=== PATIENT | female | born 1995 | race Caucasian/White ===

== ENCOUNTER 2018-02-22 13:36 | Emergency (ER) | payer MEDICAID ==
[~2018-02-22] VITALS: Ht 162.6 cm; Wt 70.0 kg
[2018-02-22] MEDS ORDERED: GADODIAMIDE PF 287 MG/ML 5 ML VIAL (for RAD MRI) IVCONTRAST ONE (13:37)
[2018-02-22 15:19] VITALS: BP 105/69; PULSE 78; RESP 17; TEMP 97.8; O2SAT 100
--- NOTE | 2018-02-22 16:03 | RADRPT ---
EXAM DATE: 02/22/2018 3:49 PM EDT AGE/SEX: 22 years / Female INDICATIONS: Right anterior, inferior knee pain. CLINICAL DATA: This is the patient's initial encounter. Patient reports that signs and symptoms have been present for 2 weeks and indicates a pain score of 7/10. MEDICAL/SURGICAL HISTORY: None. None. COMPARISON: No prior [place] exams available for comparison. FINDINGS: There is a poorly circumscribed mixed lucent and sclerotic lesion involving the proximal right tibia, mainly the metaphysis however also appearing to extend into the epiphysis though not clearly to the joint level. There is cortical destruction involving the lateral metaphyseal region. The femur, huertas la and fibula appear intact and unremarkable. There is no definite soft tissue mass. Possible minimal effusion. CONCLUSION: Fairly aggressive appearing lesion in the proximal right tibia. Differential considerations would inc lude giant cell tumor, eosinophilic granuloma, infection, sarcoma. Electronically signed by: Rodrick Bell MD 02/22/2018 4:02 PM EDT
[2018-02-22] MEDS ORDERED: SODIUM CHLORIDE 0.9% FLUSH 10 ML FLUSH IVF PRN (19:15)
[2018-02-22 19:23] VITALS: BP 110/57; PULSE 90; RESP 16; O2SAT 99
[2018-02-22 19:41] LABS: AUTOMATED NEUTROPHIL # 4.6 TH/MM3 (1.8-7.7); BASOPHIL # 0.1 TH/MM3 (0-0.2); EOSINOPHIL # 0.2 TH/MM3 (0-0.4); EOSINOPHIL % 2.6 % (0.0-4.0); HEMATOCRIT 35.1 % (35.0-46.0); HEMOGLOBIN 11.9 GM/DL (11.6-15.3); LYMPH % 23.1 % (9.0-44.0); LYMPHOCYTE # 1.5 TH/MM3 (1.0-4.8); MEAN CELL VOLUME 86.8 FL (80.0-100.0); MEAN CORPUSCULAR HEMOGLOBIN 29.4 PG (27.0-34.0); MEAN CORPUSCULAR HGB CONC 33.9 % (32.0-36.0); MEAN PLATELET VOLUME 8.5 FL (7.0-11.0); MONO % 5.1 % (0.0-8.0); MONOCYTE # 0.3 TH/MM3 (0-0.9); NEUT % 68.2 % (16.0-70.0); PLATELET COUNT 385 TH/MM3 (150-450); RED BLOOD COUNT 4.04 MIL/MM3 (4.00-5.30); RED CELL DISTRIBUTION WIDTH 13.6 % (11.6-17.2); WHITE BLOOD COUNT 6.7 TH/MM3 (4.0-11.0)
[2018-02-22 19:56] LABS: ALT (GPT) 19 U/L (9-42)
[2018-02-22 19:59] LABS: ALKALINE PHOSPHATASE 77 U/L (45-117); TOTAL BILIRUBIN ADULT 0.4 MG/DL (0.2-1.0); TOTAL PROTEIN 9.6 GM/DL (6.4-8.2)
[2018-02-22 20:06] LABS: ALBUMIN 4.3 GM/DL (3.4-5.0); AST (GOT) 20 U/L (16-38); BICARBONATE 24.2 MEQ/L (21.0-32.0); BLOOD UREA NITROGEN 9 MG/DL (7-18); CALCIUM 9.5 MG/DL (8.5-10.1); CHLORIDE 102 MEQ/L (98-107); GLOMERULAR FILTRATION RATE 91 ML/MIN (>89); GLUCOSE,RANDOM 100 MG/DL (74-106); SODIUM (NA) 139 MEQ/L (136-145)
--- NOTE | 2018-02-22 20:24 | PD ---
HPI Chief Complaint: Musculoskeletal Complaint Time Seen by Provider: 18:27 Travel History International Travel<30 days: No Contact w/Intl Traveler<30days: No Traveled to known affect area: No History of Present Illness HPI 22-year-old female complains of right knee pain. She has had pain in the right knee for several years. It has been raining for the past week or so when she reports the pain has been much worse since the rain started. She denies trauma. Pain is worse with palpation and ambulation. No shortness of breath. No chest pain. PFSH Past Medical History Medical History: Denies Significant Hx Tetanus Vaccination: Unknown Influenza Vaccination: No ?: Not Past Surgical History Surgical History: No Previous Surgery Social History Alcohol Use: No Tobacco Use: No Substance Use: No Allergies-Medications (Allergen,Severity, Reaction): Coded Allergies: No Known Allergies (Unverified , 02/22/18) Reported Meds & Prescriptions Reported Meds & Active Scripts Active No Active Prescriptions or Reported Medications Review of Systems General / Constitutional: No: Fever Eyes: No: Diploplia HENT: No: Headaches Cardiovascular: No: Chest Pain or Discomfort, Palpitations Respiratory: No: Shortness of Breath Musculoskeletal: Positive: Limited ROM, Pain, No: Myalgias, Arthralgias, Weakness, Cramping, Edema Physical Exam Narrative GENERAL: 22-year-old female pleasant well-nourished well-developed mild distress secondary to pain Vital Signs Date Time Temp Pulse Resp B/P (MAP) Pulse Ox O2 Delivery O2 Flow Rate FiO2 02/22/18 19:23 90 16 110/57 (74) 99 Room Air 02/22/18 15:19 97.8 78 17 105/69 (81) 100 SKIN: Warm and dry. HEAD: Normocephalic. EYES: No scleral icterus. No injection or drainage. NECK: Supple, trachea midline. No JVD or lymphadenopathy. CARDIOVASCULAR: Regular rate and rhythm without murmurs, gallops, or rubs. RESPIRATORY: Breath sounds equal bilaterally. No accessory muscle use. GASTROINTESTINAL: Abdomen soft, non-tender, nondistended. MUSCULOSKELETAL: Right knee is slightly flexed. Full extension is limited due to pain. There is generalized swelling about the region of the tibial tuberosity. There is no warmth or induration. 2+ dorsalis pedis bilaterally. BACK: Nontender without obvious deformity. No CVA tenderness. Data Data Last Documented VS Vital Signs Date Time Temp Pulse Resp B/P (MAP) Pulse Ox O2 Delivery O2 Flow Rate FiO2 02/22/18 19:23 90 16 110/57 (74) 99 Room Air 02/22/18 15:19 97.8 Vital signs normal Orders Orders Knee, Complete (4vws) (02/22/18 ) Complete Blood Count With Diff (02/22/18 19:02) Comprehensive Metabolic Panel (02/22/18 19:02) Iv Access Insert/Monitor (02/22/18 19:02) Sodium Chloride 0.9% Flush (Ns Flush) (02/22/18 19:15) Mri Lower Leg W/Wo Contrast (02/22/18 19:50) Gadodiamide Pf Inj (Omniscan Pf Inj) (02/22/18 13:37) Labs Laboratory Tests Test 02/22/18 19:27 White Blood Count 6.7 TH/MM3 Red Blood Count 4.04 MIL/MM3 Hemoglobin 11.9 GM/DL Hematocrit 35.1 % Mean Corpuscular Volume 86.8 FL Mean Corpuscular Hemoglobin 29.4 PG Mean Corpuscular Hemoglobin Concent 33.9 % Red Cell Distribution Width 13.6 % Platelet Count 385 TH/MM3 Mean Platelet Volume 8.5 FL Neutrophils (%) (Auto) 68.2 % Lymphocytes (%) (Auto) 23.1 % Monocytes (%) (Auto) 5.1 % Eosinophils (%) (Auto) 2.6 % Basophils (%) (Auto) 1.0 % Neutrophils # (Auto) 4.6 TH/MM3 Lymphocytes # (Auto) 1.5 TH/MM3 Monocytes # (Auto) 0.3 TH/MM3 Eosinophils # (Auto) 0.2 TH/MM3 Basophils # (Auto) 0.1 TH/MM3 CBC Comment DIFF FINAL Differential Comment Blood Urea Nitrogen 9 MG/DL Creatinine 0.80 MG/DL Random Glucose 100 MG/DL Total Protein 9.6 GM/DL Albumin 4.3 GM/DL Calcium Level 9.5 MG/DL Alkaline Phosphatase 77 U/L Aspartate Amino Transf (AST/SGOT) 20 U/L Alanine Aminotransferase (ALT/SGPT) 19 U/L Total Bilirubin 0.4 MG/DL Sodium Level 139 MEQ/L Potassium Level 4.0 MEQ/L Chloride Level 102 MEQ/L Carbon Dioxide Level 24.2 MEQ/L Anion Gap 13 MEQ/L Estimat Glomerular Filtration Rate 91 ML/MIN MDM Medical Decision Making Medical Screen Exam Complete: Yes Emergency Medical Condition: Yes Medical Record Reviewed: Yes Differential Diagnosis Fracture, arthritis, tumor Narrative Course CBC & BMP Diagram 02/22/18 19:27 Total Protein 9.6 H, Albumin 4.3, Calcium Level 9.5, Alkaline Phosphatase 77, Aspartate Amino Transf (AST/SGOT) 20, Alanine Aminotransferase (ALT/SGPT) 19, Total Bilirubin 0.4 Last Impressions Knee X-Ray 02/22/18 0000 Signed Impressions: CONCLUSION: Fairly aggressive appearing lesion in the proximal right tibia. Differential co nsiderations would include giant cell tumor, eosinophilic granuloma, infection, sarcoma. Case discussed with orthopedic surgeon nuclear weapons specialist Dr. Jimenez who advises MRI of the tibia-fibula and knee with a referral to orthopedic oncology at [facility] or [place]. I spoke with the on-call orthopedic oncologist at [facility] in [place] at approximately 9:30 PM. 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 They are more than willing to see the patient. The appointment will be on Sunday after . The patient's contact info was checked and then provided to the on-call orthopedic oncologist. The plan was discussed with the patient with the guardian there. Both verbalized understanding and agreement to follow-up as scheduled on Sunday. We will provide the patient with crutches. Michael bandage also provided. Last Impressions Lower Extremity MRI 02/22/18 1950 Signed Impressions: CONCLUSION: 1. Enhancing, heterogeneous destructive mass with soft tissue component involv ing the proximal 7 cm of the right tibia most characteristic of neoplasm. Prima ry differential diagnosis is osteogenic sarcoma. Knee X-Ray 02/22/18 0000 Signed Impressions: CONCLUSION: Fairly aggressive appearing lesion in the proximal right tibia. Differential co nsiderations would include giant cell tumor, eosinophilic granuloma, infection, sarcoma. Diagnosis Primary Impression: Neoplasm of tibia Referrals: DR DUBOSE IN [place] ON SUNDAY Additional Instructions: ON March, PLEASE GO TO [facility] IN [place] TO SEE DR DUBOSE. 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 HER NAME IS CHACORTA. PLEASE CALL ON SUNDAY TO CONFIRM WHAT TIME AND THE DIRECTIONS TO THE OFFICE. PLAN TO STAY FOR A FEW DAYS. PLEASE USE THE CRUTCHES PROVIDED FOR YOU AND MINIMIZE WALKING ON THE RIGHT LEG. Med/Other Pt SpecificInfo: No Change to Meds Scripts No Active Prescriptions or Reported Meds Disposition: 01 DISCHARGE HOME Condition: Carlos White MD February 22, 2018 20:24
--- NOTE | 2018-02-22 21:14 | RADRPT ---
EXAM DATE: 02/22/2018 9:00 PM EDT AGE/SEX: 22 years / Female INDICATIONS: Mass. CLINICAL DATA: This is the patient's initial encounter. Patient reports that signs and symptoms have been present for 1 day and indicates a pain score of 5/10. MEDICAL/SURGICAL HISTORY: None. None. COMPARISON: No prior [place] exams available for comparison. TECHNIQUE: Multiplanar, multisequence MRI examination was performed without and with ml Omniscan (ga dodiamide) contrast as single exam dose. FINDINGS: There is a very heterogeneous, enhancing destructive mass involving the proximal tibia extending over a length of around 7 cm. There is some inferior extension of marrow edema as well. There is some sof t tissue extension through the posterior lateral aspect of the proximal tibia with a soft tissue comp onent measuring at least 3 x 1.8 cm. There is cortical lytic destruction adjacent to this soft tissue mass. There is a small knee joint effusion. No mass is identified in the distal femur or proximal ti lemuel. CONCLUSION: 1. Enhancing, heterogeneous destructive mass with soft tissue component involving the proximal 7 cm of the right tibia most characteristic of neoplasm. Primary differential diagnosis is osteogenic sarc seble. Electronically signed by: Ronnie Rosa MD 02/22/2018 9:13 PM EDT
== END 2018-02-22 22:26 | disposition home or self-care (01) ==
LOC: NEPD 13:36
DX: D49.2 Neoplasm of unspecified behavior of bone, soft tissue, and skin (principal)
CPT/HCPCS: 73564; 73720; 80053; 85025; 99285; A9579; E0113

== ENCOUNTER 2018-03-21 19:50 | Emergency (ER) | payer MEDICAID ==
[~2018-03-21] VITALS: Ht 162.6 cm; Wt 60.0 kg
[2018-03-21 20:21] VITALS: BP 112/65; PULSE 106; RESP 18; TEMP 99; O2SAT 100
[2018-03-21] MEDS ORDERED: SODIUM CHLOR 0.9% 1000 ML INJ 1,000 ML IV SCH (21:40)
[2018-03-21] MEDS ORDERED: MORPHINE SULFATE 4 MG/ML INJ IV PUSH ONE (21:45)
[2018-03-21] MEDS ORDERED: ONDANSETRON HCL 4 MG/2 ML VIAL IM ONE (21:45)
--- NOTE | 2018-03-21 21:52 | PD ---
HPI Chief Complaint: Abdominal Pain Time Seen by Provider: 21:27 Travel History International Travel<30 days: No Contact w/Intl Traveler<30days: No Traveled to known affect area: No History of Present Illness HPI 22-year-old female that presents to the ED for evaluation of abdominal pain and no bowel movements. Per patient she has a history of cancer and is currently being treated by [facility]. She had first chemotherapy last week and has been doing okay except having some side effects. Per patient since Sunday she has not been able to have a bowel movement. She states that she has pain whenever she tries to have a bowel movement. She has not been able to pass gas per her. She has been feeling nauseous and had some vomit. She takes Zofran and pain medication as well as anxiolytics lorazepam to help with the symptoms as well. She has not had any chemo since. She has tried some [id number]-inx-[id number] remedies with minimal relief. Denies any blood. Denies any blood thinner use. She does have a Port. 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 States that currently the pain is 7 out of 10 especially the lower abdomen. No other medical issues reported at this time. PFSH Past Medical History Cancer: Yes (OSTEOSARCOMA) ?: Not LMP: 03/02/18 Past Surgical History Other Surgery: Yes (BIOPSY OF THE RIGHT LEG) Social History Alcohol Use: No Tobacco Use: No Substance Use: No Allergies-Medications (Allergen,Severity, Reaction): Coded Allergies: No Known Allergies (Unverified , 03/21/18) Reported Meds & Prescriptions Reported Meds & Active Scripts Active No Active Prescriptions or Reported Medications Review of Systems Except as stated in HPI: all other systems reviewed are Neg Physical Exam Narrative GENERAL: SKIN: Warm and dry. HEAD: Atraumatic. Normocephalic. EYES: Pupils equal and round. No scleral icterus. No injection or drainage. ENT: No nasal bleeding or discharge. Mucous membranes pink and moist. Tongue is midline. No uvula deviation. NECK: Trachea midline. No JVD. CARDIOVASCULAR: Regular rate and rhythm. No murmurs, S3, S4. RESPIRATORY: No accessory muscle use. Clear to auscultation. Breath sounds equal bilaterally. GASTROINTESTINAL: Abdomen soft, tender to palpation in the lower abdomen, nondistended. Hepatic and splenic margins not palpable. MUSCULOSKELETAL: Extremities without clubbing, cyanosis, or edema. No obvious deformities. 2+ pulses bilaterally. NEUROLOGICAL: Awake and alert. No obvious cranial nerve deficits. Motor grossly within normal limits. Five out of 5 muscle strength in the arms and legs. Normal speech. PSYCHIATRIC: Appropriate mood and affect; insight and judgment normal. Data Data Last Documented VS Vital Signs Date Time Temp Pulse Resp B/P (MAP) Pulse Ox O2 Delivery O2 Flow Rate FiO2 03/21/18 20:21 99.0 106 18 112/65 (81) 100 Orders Orders Complete Blood Count With Diff (03/21/18 21:40) Comprehensive Metabolic Panel (03/21/18 21:40) Lactic Acid (03/21/18 21:40) Urinalysis - C+S If Indicated (03/21/18 21:40) Ct Abd/Pel W Iv Contrast(Rout) (03/21/18 21:40) Iv Access Insert/Monitor (03/21/18 21:40) Ecg Monitoring (03/21/18 21:40) Morphine Inj (Morphine Inj) (03/21/18 21:45) Sodium Chlor 0.9% 1000 Ml Inj (Ns 1000 M (03/21/18 21:40) Ondansetron Inj (Zofran Inj) (03/21/18 21:45) Ondansetron Odt (Zofran Odt) (03/21/18 22:30) MDM Medical Decision Making Medical Screen Exam Complete: Yes Emergency Medical Condition: Yes Medical Record Reviewed: Yes Differential Diagnosis Acute abdomen versus constipation versus obstruction versus medication side effect Narrative Course 22-year-old female that presents to the ED for evaluation of abdominal pain. Patient was properly examined and was found to have signs and symptoms concerning for obstruction. Labs and imaging order. Patient was given IV fluids as well as pain medication and antiemetics. Case signed out to my attending pending disposition and plan. Scripts No Active Prescriptions or Reported Meds Ra Rao Mar 21, 2018 21:52
[2018-03-21] MEDS ORDERED: ONDANSETRON ODT 4 MG TAB PO ONE (22:30)
--- NOTE | 2018-03-21 23:00 | PD ---
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 She is seen at oncology [facility] at [facility] now she has had 3 days with no bowel movement and she is worried that she is good she did has obstipation as well as constipation pending CT Data Data Last Documented VS Vital Signs Date Time Temp Pulse Resp B/P (MAP) Pulse Ox O2 Delivery O2 Flow Rate FiO2 03/22/18 00:46 89 18 110/62 (78) 98 Room Air 03/21/18 20:21 99.0 Orders Orders Complete Blood Count With Diff (03/21/18 21:40) Comprehensive Metabolic Panel (03/21/18 21:40) Lactic Acid (03/21/18 21:40) Urinalysis - C+S If Indicated (03/21/18 21:40) Iv Access Insert/Monitor (03/21/18 21:40) Ecg Monitoring (03/21/18 21:40) Morphine Inj (Morphine Inj) (03/21/18 21:45) Sodium Chlor 0.9% 1000 Ml Inj (Ns 1000 M (03/21/18 21:40) Ondansetron Inj (Zofran Inj) (03/21/18 21:45) Ondansetron Odt (Zofran Odt) (03/21/18 22:30) Beta Hcg (Quant/Titer) (03/21/18 23:31) Ct Abd/Pel W Iv Contrast(Rout) (03/22/18 21:40) Morphine Inj (Morphine Inj) (03/22/18 00:45) Iodixanol 320 Inj (Rad Ct) (Visipaque 32 (03/22/18 01:53) Fleets Enema PRN (03/22/18 02:47) Labs Laboratory Tests Test 03/21/18 22:25 03/21/18 22:43 White Blood Count 1.4 TH/MM3 Red Blood Count 4.42 MIL/MM3 Hemoglobin 12.3 GM/DL Hematocrit 37.7 % Mean Corpuscular Volume 85.4 FL Mean Corpuscular Hemoglobin 27.8 PG Mean Corpuscular Hemoglobin Concent 32.6 % Red Cell Distribution Width 14.2 % Platelet Count 137 TH/MM3 Mean Platelet Volume 9.8 FL CBC Comment AUTO DIFF Differential Total Cells Counted 100 Neutrophils % (Manual) 4 % Band Neutrophils % 1 % Lymphocytes % 90 % Monocytes % 1 % Eosinophils % 4 % Neutrophils # (Manual) 0.1 TH/MM3 Differential Comment FINAL DIFF MANUAL Toxic Vacuolation PRESENT Platelet Estimate LOW Platelet Morphology Comment NORMAL Red Cell Morphology Comment NORMAL Blood Urea Nitrogen 32 MG/DL Creatinine 1.15 MG/DL Random Glucose 90 MG/DL Total Protein 7.7 GM/DL Albumin 3.7 GM/DL Calcium Level 8.5 MG/DL Alkaline Phosphatase 69 U/L Aspartate Amino Transf (AST/SGOT) 14 U/L Alanine Aminotransferase (ALT/SGPT) 22 U/L Total Bilirubin 0.6 MG/DL Sodium Level 136 MEQ/L Potassium Level 3.2 MEQ/L Chloride Level 101 MEQ/L Carbon Dioxide Level 24.9 MEQ/L Anion Gap 10 MEQ/L Estimat Glomerular Filtration Rate 60 ML/MIN Lactic Acid Level 1.0 mmol/L Human Chorionic Gonadotropin, Quant LESS THAN 1 MIU/ML Urine Color YELLOW Urine Turbidity CLEAR Urine pH 6.0 Urine Specific [place] 1.021 Urine Protein 100 mg/dL Urine Glucose (UA) 50 mg/dL Urine Ketones NEG mg/dL Urine Occult Blood NEG Urine Nitrite NEG Urine Bilirubin NEG Urine Urobilinogen 2.0 mg/dL Urine Leukocyte Esterase NEG Urine RBC 2 /hpf Urine WBC 1 /hpf Urine Squamous Epithelial Cells <1 /hpf Urine Mucus FEW /lpf Microscopic Urinalysis Comment CULT NOT INDICATED MDM Medical Record Reviewed: Yes Supervised Visit with MARK: Yes Narrative Course pt has constipation from chemo and opioids for her bone CA Diagnosis Primary Impression: Constipation Qualified Codes: K59.00 - Constipation, unspecified Patient Instructions: Constipation (ED), General Instructions Scripts Bisacodyl Enema (Fleet Bisacodyl Enema) 10 Mg/37 Ml Enem 37 ML RECTAL DAILY Y for CONSTIPATION, #6 BOTTLE 0 Refills Prov: Hugo Edward MD 03/22/18 Polyethylene Glycol 3350 Powder (Miralax Powder) 17 Gm Powd 17 GM PO DAILY for Constipation, #1 CAN 0 Refills Mix and dissolve one measuring cap-ful (17 grams) in water or juice. Prov: Hugo Edward MD 03/22/18 Disposition: 01 DISCHARGE HOME Hugo Edward MD Mar 21, 2018 23:00
[2018-03-21 23:07] LABS: HEMATOCRIT 37.7 % (35.0-46.0); HEMOGLOBIN 12.3 GM/DL (11.6-15.3); MEAN CELL VOLUME 85.4 FL (80.0-100.0); MEAN CORPUSCULAR HEMOGLOBIN 27.8 PG (27.0-34.0); MEAN CORPUSCULAR HGB CONC 32.6 % (32.0-36.0); MEAN PLATELET VOLUME 9.8 FL (7.0-11.0); PLATELET COUNT 137 TH/MM3 (150-450); RED BLOOD COUNT 4.42 MIL/MM3 (4.00-5.30); RED CELL DISTRIBUTION WIDTH 14.2 % (11.6-17.2); WHITE BLOOD COUNT 1.4 TH/MM3 (4.0-11.0)
[2018-03-21 23:16] LABS: BILIRUBIN, URINE NEG (NEG); BLOOD, URINE NEG (NEG); GLUCOSE,URINE 50 mg/dL (NEG); KETONE, URINE NEG (NEG); MUCUS URINE FEW /lpf (OCC); NITRITE,URINE NEG (NEG); SQUAMOUS EPITHELIAL CELL URINE <1 /hpf (0-5); URINE COLOR YELLOW (YELLW/STRAW); URINE LEUKOCYTE ESTERASE NEG (NEG)
[2018-03-21 23:27] LABS: ALBUMIN 3.7 GM/DL (3.4-5.0); AST (GOT) 14 U/L (16-38); BICARBONATE 24.9 MEQ/L (21.0-32.0); BLOOD UREA NITROGEN 32 MG/DL (7-18); CALCIUM 8.5 MG/DL (8.5-10.1); CHLORIDE 101 MEQ/L (98-107); CREATININE 1.15 MG/DL (0.50-1.00); GLOMERULAR FILTRATION RATE 60 ML/MIN (>89); GLUCOSE,RANDOM 90 MG/DL (74-106); SODIUM (NA) 136 MEQ/L (136-145)
[2018-03-21 23:31] LABS: ALKALINE PHOSPHATASE 69 U/L (45-117); ALT (GPT) 22 U/L (9-42); TOTAL BILIRUBIN ADULT 0.6 MG/DL (0.2-1.0); TOTAL PROTEIN 7.7 GM/DL (6.4-8.2)
[2018-03-22] MEDS ORDERED: MORPHINE SULFATE 4 MG/ML INJ IV PUSH ONE (00:45)
[2018-03-22 00:46] VITALS: BP 110/62; PULSE 89; RESP 18; O2SAT 98
[2018-03-22 01:21] LABS: BANDS 1 % (0-6); LYMPHOCYTES 90 % (9-44); MONOCYTES 1 % (0-8); POLYS (SEG NEUTROPHILS) 4 % (16-70)
[2018-03-22 01:23] LABS: NEUTROPHIL # MANUAL DIFF 0.1 TH/MM3 (1.8-7.7); TOXIC VACUOLATION PRESENT (NONE SEEN)
[2018-03-22] MEDS ORDERED: IODIXANOL 320 MG/ML 10 ML VIAL (for Rad CT) IVCONTRAST ONE (01:53)
--- NOTE | 2018-03-22 02:03 | RADRPT ---
EXAM DATE: 03/22/2018 1:52 AM EDT AGE/SEX: 22 years / Female INDICATIONS: Abdominal pain and constipation. CLINICAL DATA: This is the patient's initial encounter. Patient reports that signs and symptoms have been present for 4 - 6 days and indicates a pain score of 10/10. MEDICAL/SURGICAL HISTORY: . Osteosarcoma. Chemotherapy. . Port Placement. ORAL CONTRAST: No oral contrast ingested. RADIATION DOSE: 4.86 CTDI (mGy) COMPARISON: No prior exams available for comparison. TECHNIQUE: Multiple contiguous axial images were obtained through the abdomen and pelvis following b olus infusion of 85 ml Visipaque 320 (iodixanol) nonionic water-soluble contrast as a single exam d ose. No oral contrast ingested. Using automated exposure control and adjustment of the mA and/or kV according to patient size, radiation dose was kept as low as reasonably achievable to obtain optimal diagnostic quality images. DICOM format image data is available electronically for review and compar kevin. FINDINGS: Lower Lungs: The visualized lower lungs are clear. Liver: The liver has a homogeneous density without space-occupying lesion. There is no dilation of th e biliary tree. The gallbladder is unremarkable. Spleen: Homogeneous density without enlargement. Pancreas: Unremarkable without mass or calcification. Kidneys: Normal in size and shape. No evidence of a solid mass or hydronephrosis. There are 2 small simple cysts in the left kidney. Adrenal Glands: Unremarkable. Aorta: The aorta and proximal iliac vessels are grossly unremarkable without aneurysmal dilation. Bowel/Mesentery: No oral contrast was given limiting the sensitivity of the exam. Moderate amount of stool is present: No evidence of obstruction. There is no free air or fluid. Abdominal Wall: Intact. Retroperitoneum: No evidence of adenopathy in the retrocrural, para-aortic, or deep pelvic regions. Bladder: Contours are smooth. Reproductive Organs: No abnormal masses or calcifications seen. Inguinal: The inguinal region is unremarkable without evidence of adenopathy. Bony Structures: Unremarkable. CONCLUSION: 1. Nonobstructive bowel gas pattern with moderate amount of stool. 2. 2. Small simple cyst in the left kidney. Electronically signed by: Don Resendez MD 03/22/2018 2:02 AM EDT
[2018-03-22] MEDS ORDERED: MIRA3350 PO (02:49)
[2018-03-22] MEDS ORDERED: FLEE10EN RECTAL (02:49)
[2018-03-22] MEDS ORDERED: SOD PHOSPHATE/SOD BIPHOSPHATE (ADULT) ENEMA 133ML RECTAL ONE (03:00)
== END 2018-03-22 03:15 | disposition home or self-care (01) ==
LOC: NEPE 19:50
DX: K59.00 Constipation, unspecified (principal); N28.1 Cyst of kidney, acquired; C41.9 Malignant neoplasm of bone and articular cartilage, unspecified
CPT/HCPCS: 74177; 80053; 81001; 83605; 84702; 85007; 85027; 96361; 96374; 96376; 99284; J1642; J2270; J7030; Q9967

== ENCOUNTER 2018-03-22 22:44 | Inpatient (IN) ==
[2018-03-31] MEDS ORDERED: Aluminum/Magnesium/Simethacone Susp 30 ML UDC PO PRN (00:01)
[2018-03-31] MEDS ORDERED: Heparin Central Flush 100 UNIT/ML 5 ML Vial IV.FLUSH PRN ×2 (00:01)
[2018-03-31] MEDS ORDERED: Nystatin/Diphenhydramine/Lidocaine Mouthwash (Adult) 120 ML Botttle SWISH-SWAL PRN (00:01)
[2018-03-31] MEDS ORDERED: Acetaminophen 325 MG Tablet PO PRN ×2 (00:01)
[2018-03-31] MEDS ORDERED: Bisacodyl 10 MG Supp RECTAL PRN (00:01)
[2018-03-31] MEDS ORDERED: Morphine Inj 4 MG/ML Vial IV.PUSH PRN (00:01)
[2018-03-31] MEDS: Senna/Docusate Sodium 8.6/50 MG Tablet PO SCH ×2 (10:00→20:54)
--- NOTE | 2018-03-31 10:38 | P.CONID ---
History of Present Illness Service: ID Consult date: 03/31/18 Requesting Physician: Gume Aguilera Reason for Consult: Evaluation and MMent of Fever Primary Care Provider: No Primary Care Physician Chief Complaint: Pain in the butt History of Present Illness: is a 22 y/o CF with recent diagnosis of Osteosarcoma who was referred to the ER by her Oncologist, Dr. Arora, at [facility] for evaluation of fever. Pt was diagnosed w/ Osteosarcoma on ER visit 02/22/18, was referred to [facility] and started on Chemo 1wk ago. Most of the history provided by patient's older sister who is at bedside. States she was doing well after chemo until today when she started having fever of 102 at home in addition to nausea. Sister reports she was on bactrim oral and Neupogen inj on 03/17/2018. Denies SOB , cough, sick contacts. Seen in ER yesterday, 03/22/18 for possible constipation , CT Abd/Pelvis w/ nonobstructive bowel gas pattern and left kidney simple cyst. On arrival, BP 102/59, HR 135, O2 sat 100% on RA, Temp 100.1. WBC 0.3. Platelets 90. Chemistry unremarkable except for GFR 79, BUN 19. Lactic Acid 1.1. UA negative for UTI. CXR with no acute findings. S/p Vanc/Cefepime in ER. Workup initiated for neutropenic sepsis. ID consulted for the same. Overnight events reviewed No fevers No rash No diarrhea Port placed at [facility]. Site looks ok. PMHx Review of Systems unobtainable due to endotracheal tube Constitutional: Denies anorexia, Denies body ache(s), Denies chills, Denies daytime sleepiness, Denies excessive sweating, Denies fatigue, Denies fever(s), Denies headache(s), Denies increased appetite, Denies lack of energy, Denies malaise, Denies night sweats, Denies weakness, Denies weight gain, Denies weight loss, Denies other Eyes: Denies blind spots, Denies blurry vision, Denies bulging eyes, Denies change in vision, Denies double vision, Denies discharge, Denies dry eyes, Denies floaters, Denies irritation, Denies itchy eyes, Denies loss of vision, Denies pain, Denies requires corrective lenses, Denies sensitivity to light, Denies other PMFSH - History History Provided By: Patient, Family Member - Medical / Surgical Hx Neg / Unobtainable Medical Problems Denied: Yes (CAD, CHF, CSDADDFopjasopa) Surgical History: No Previous Surgery - Tobacco History Second Hand Smoke Exposure: Yes Tobacco Use In Past 30 Days: No Medications and Allergies Active Medications: Active Medications Acetaminophen (Tylenol) 650 mg PO Q6H PRN PRN Reason: FEVER/PAIN SCALE 1 TO 2 Acetaminophen (Tylenol) 650 mg PO Q4H PRN PRN Reason: SEE LABEL COMMENTS Hydrocodone Bitart/Acetaminophen (Bertrand 5/325) 1 tab PO Q4H PRN PRN Reason: SEE LABEL COMMENTS Al Hydrox/Mg Hydrox/Simethicone (Mag-Al Plus Susp Liq) 30 ml PO Q6H PRN PRN Reason: ABDOMINAL DISCOMFORT Al Hydroxide/Mg Hydroxide (Milk Of Magnesia Liq) 30 ml PO Q12H PRN PRN Reason: MILD CONSTIPATION Bisacodyl (Dulcolax Supp) 10 mg RECTAL DAILY PRN PRN Reason: SEVERE CONSTIPATION Diphenhydramine HCl (Benadryl) 25 mg PO Q4H PRN PRN Reason: SEE LABEL COMMENTS Heparin Sodium (Porcine) (Heparin Central Flush) 500 unit IV.FLUSH UNSCH PRN PRN Reason: Flush infusaport Heparin Sodium (Porcine) (Heparin Central Flush) 250 unit IV.FLUSH UNSCH PRN PRN Reason: Flush Infusapot Cefepime HCl 2,000 mg/ Sodium (Chloride) 100 mls @ 200 mls/hr IV.SIG Q8H [facility] Stop: 04/06/18 19:59 Last Admin: 03/31/18 04:04 Dose: 200 mls/hr Lactulose (Lactulose Liq) 30 ml PO DAILY PRN PRN Reason: SEVERE CONSTIPATION Metoclopramide HCl (Reglan Inj) 5 mg IV.PUSH Q6H PRN PRN Reason: NAUSEA/VOMITING Morphine Sulfate (Morphine Inj) 2 mg IV.PUSH Q3H PRN PRN Reason: PAIN SCALE 6 TO 10 Multi-Ingredient Mouthwash/Gargle (Magic Mouthwash Adult Liq) 5 ml SWISH-SWAL QID PRN PRN Reason: SORE THROAT Prochlorperazine Edisylate (Compazine Inj) 10 mg IV.PUSH Q4H PRN PRN Reason: NAUSEA/VOMITING Senna/Docusate Sodium (Gege-Colace) 1 tab PO BID [facility]GR[facility] Last Admin: 03/31/18 10:00 Dose: Not Given Sennosides (Senokot) 17.2 mg PO Q12H PRN PRN Reason: MODERATE CONSTIPATION Sodium Chloride (Ns Flush) 2 ml IV.FLUSH UNSCH PRN PRN Reason: FLUSH AFTER USING IV ACCESS Sodium Chloride (Ns Flush) 2 ml IV.FLUSH BID NEGRITA Sodium Chloride (Ns Flush) 5 ml IV.FLUSH UNSCH PRN PRN Reason: Flush Infusaport Allergies Allergy/AdvReac Type Severity Reaction Status Date / Time No Known Allergies Allergy Unverified 03/21/18 21:32 Home Medications Medication Instructions Recorded Confirmed Type bisacodyl [Fleet Bisacodyl] 10 mg NC DAILY PRN 03/30/18 03/30/18 History polyethylene glycol 3350 17 g PO DAILY 03/30/18 03/30/18 History Exam Vital signs: Vital Signs 03/31/18 04:13 03/31/18 10:12 Temperature 98.3 F 98.9 F Pulse Rate 89 93 H Respiratory Rate 15 20 Blood Pressure 100/60 106/60 Pulse Oximetry 98 99 Intake & Output 03/30/18 03/31/18 03/31/18 18:59 06:59 18:59 Intake Total 240 / 240 Output Total 400 / 400 Balance -160 / -160 Intake: Oral 240 / 240 Output: Urine 400 / 400 Other: Date of Last Bowel Movement 03/31/18 03/30/18 # Bowel Movements 1 Results - Labs CBC & Chem 7: 03/30/18 04:45 03/30/18 04:45 Labs: Laboratory Results - last 24 hr 03/28/18 03/28/18 03/29/18 04:00 04:00 04:12 WBC 12.2 H D RBC 3.09 L Hgb 8.5 L Hct 25.9 L MCV 83.6 MCH 27.5 MCHC 32.9 RDW 13.5 Plt Count 81 L D MPV 9.6 CBC Comment Total Counted Neutrophils % (Manual) Band Neutrophils % Lymphocytes % Monocytes % Basophils % Neutrophils # (Manual) Metamyelocytes Myelocytes Promyelocytes Nucleated RBCs Differential Comment Blast Cells Toxic Granulation Platelet Estimate Plt Morphology Comment RBC Morph Comment Sodium 140 139 Potassium 3.6 3.8 Chloride 106 105 Carbon Dioxide 25.2 24.9 Anion Gap 9 9 BUN 5 L 9 Creatinine 0.60 0.49 L Estimated GFR 127 161 Random Glucose 89 80 Calcium 8.3 L 8.9 Phosphorus 1.7 L Magnesium 1.6 1.7 Total Bilirubin 0.3 AST 19 ALT 21 Alkaline Phosphatase 86 Total Protein 6.6 D Albumin 3.1 L D 03/29/18 03/30/18 03/30/18 04:12 04:45 04:45 WBC 17.7 H 10.5 RBC 3.38 L 3.46 L Hgb 9.4 L 10.0 L Hct 28.4 L 29.1 L MCV 84.1 84.2 MCH 27.8 28.8 MCHC 33.1 34.1 RDW 13.7 13.8 Plt Count 152 D 208 D MPV 9.4 8.8 CBC Comment AUTO DIFF AUTO DIFF Total Counted 100 100 Neutrophils % (Manual) 32 57 Band Neutrophils % 34 H 5 Lymphocytes % 17 21 Monocytes % 6 7 Basophils % 1 Neutrophils # (Manual) 13.5 H 7.5 Metamyelocytes 6 H 6 H Myelocytes 4 H 1 H Promyelocytes 2 H Nucleated RBCs 1 H Differential Comment FINAL DIFF MANUAL FINAL DIFF MANUAL Blast Cells 1 H Toxic Granulation 2+ H 1+ H Platelet Estimate NORMAL NORMAL Plt Morphology Comment NORMAL NORMAL RBC Morph Comment NORMAL Sodium 138 Potassium 3.9 Chloride 104 Carbon Dioxide 28.0 Anion Gap 6 BUN 13 Creatinine 0.60 Estimated GFR 127 Random Glucose 95 Calcium 8.7 Phosphorus 2.8 D Magnesium 1.7 Total Bilirubin 0.2 AST 14 L ALT 24 Alkaline Phosphatase 79 Total Protein 7.0 Albumin 3.2 L
--- NOTE | 2018-03-31 16:45 | P.PN ---
Subjective Interval history: Follow-up Pseudomonas bacteremia. She has no complaints she wants to be discharged states she has a place to stay. Discussed with case management Physical Exam Vital signs: Vital Signs 03/31/18 04:13 03/31/18 10:12 03/31/18 12:10 Temperature 98.3 F 98.9 F 98.2 F Pulse Rate 89 93 H 96 H Respiratory Rate 15 20 20 Blood Pressure 100/60 106/60 112/68 Pulse Oximetry 98 99 98 Intake & Output 03/30/18 03/31/18 03/31/18 18:59 06:59 18:59 Intake Total 340 / 340 Output Total 400 / 400 Balance -60 / -60 Intake: IV 100 / 100 Maxipime Inj 2,000 MG In NS Inj 100 / 100 100 ML @ 200 mls/hr IV.SIG Q8H [facility] Rx#:[id number] Oral 240 / 240 Output: Urine 400 / 400 Other: Date of Last Bowel Movement 03/31/18 03/30/18 # Bowel Movements 1 Narrative: GENERAL: Awake alert and oriented 3 talkative and cooperative SKIN: Warm and dry. Old incision below right knee slowly healing CARDIOVASCULAR: Regular rate and rhythm. S1-S2 no S3 or S4 RESPIRATORY: No accessory muscle use. Clear to auscultation. Breath sounds equal bilaterally. GASTROINTESTINAL: Abdomen soft, non-tender, nondistended. MUSCULOSKELETAL: Extremities without clubbing, cyanosis, or edema. No obvious deformities. NEUROLOGICAL: Awake and alert. No obvious cranial nerve deficits. Motor grossly within normal limits. Five out of 5 muscle strength in the arms and legs. Normal speech. PSYCHIATRIC: Appropriate mood and affect; insight and judgment normal. Results - Labs CBC & Chem 7: 03/30/18 04:45 03/30/18 04:45 Labs: Laboratory Results - last 24 hr 03/28/18 03/28/18 03/29/18 04:00 04:00 04:12 WBC 12.2 H D RBC 3.09 L Hgb 8.5 L Hct 25.9 L MCV 83.6 MCH 27.5 MCHC 32.9 RDW 13.5 Plt Count 81 L D MPV 9.6 CBC Comment Total Counted Neutrophils % (Manual) Band Neutrophils % Lymphocytes % Monocytes % Basophils % Neutrophils # (Manual) Metamyelocytes Myelocytes Promyelocytes Nucleated RBCs Differential Comment Blast Cells Toxic Granulation Platelet Estimate Plt Morphology Comment RBC Morph Comment Sodium 140 139 Potassium 3.6 3.8 Chloride 106 105 Carbon Dioxide 25.2 24.9 Anion Gap 9 9 BUN 5 L 9 Creatinine 0.60 0.49 L Estimated GFR 127 161 Random Glucose 89 80 Calcium 8.3 L 8.9 Phosphorus 1.7 L Magnesium 1.6 1.7 Total Bilirubin 0.3 AST 19 ALT 21 Alkaline Phosphatase 86 Total Protein 6.6 D Albumin 3.1 L D 03/29/18 03/30/18 03/30/18 04:12 04:45 04:45 WBC 17.7 H 10.5 RBC 3.38 L 3.46 L Hgb 9.4 L 10.0 L Hct 28.4 L 29.1 L MCV 84.1 84.2 MCH 27.8 28.8 MCHC 33.1 34.1 RDW 13.7 13.8 Plt Count 152 D 208 D MPV 9.4 8.8 CBC Comment AUTO DIFF AUTO DIFF Total Counted 100 100 Neutrophils % (Manual) 32 57 Band Neutrophils % 34 H 5 Lymphocytes % 17 21 Monocytes % 6 7 Basophils % 1 Neutrophils # (Manual) 13.5 H 7.5 Metamyelocytes 6 H 6 H Myelocytes 4 H 1 H Promyelocytes 2 H Nucleated RBCs 1 H Differential Comment FINAL DIFF MANUAL FINAL DIFF MANUAL Blast Cells 1 H Toxic Granulation 2+ H 1+ H Platelet Estimate NORMAL NORMAL Plt Morphology Comment NORMAL NORMAL RBC Morph Comment NORMAL Sodium 138 Potassium 3.9 Chloride 104 Carbon Dioxide 28.0 Anion Gap 6 BUN 13 Creatinine 0.60 Estimated GFR 127 Random Glucose 95 Calcium 8.7 Phosphorus 2.8 D Magnesium 1.7 Total Bilirubin 0.2 AST 14 L ALT 24 Alkaline Phosphatase 79 Total Protein 7.0 Albumin 3.2 L Assessment and Plan - Plan Neutropenic fever/ Osteosarcoma Started on chemo 1wk prior to admission for osteosarcoma of right leg. She follows at [facility] next treatment April 08. WBC 0.3, Temp 102. U/a negative for UTI, CXR w/ no acute findings. Blood culture growing pseudomonas. ID and oncology consults appreciated. - Follow up repeat cultures. NGTD. - Per ID may need to continue IV antibiotics for two weeks from last negative culture til April 06. Will follow. - Neutropenic Precautions. - s/p Neupogen. Anemia/ Thrombocytopenia Hemoglobin and platelet count have decreased. Exacerbated by menstruation. S/p transfusion. - repeat CBC and transfuse as needed. - follow up with oncology. GI discomfort The pt endorses lower quadrant discomfort, radiating to her back. No CVA tenderness. LFTs not elevated. Seems resolved. - Continue antiemetics as needed w/ Reglan and Compazine. - ADAT. - Maalox as needed. Malnutrition The pt has not been eating much. - trial of Enlive. - replete potassium. DVT Prophylaxis: SCD/Teds Discharge Planning States she is not homeless dw case management to arrange [facility]
--- NOTE | 2018-04-01 08:30 | P.PN ---
Subjective Interval history: Follow-up Pseudomonas bacteremia. Stable overnight. Discussed with ID Physical Exam Vital signs: Vital Signs 03/31/18 10:12 03/31/18 12:10 03/31/18 17:33 Temperature 98.9 F 98.2 F 98.3 F Pulse Rate 93 H 96 H 93 H Respiratory Rate 20 20 20 Blood Pressure 106/60 112/68 111/72 Pulse Oximetry 99 98 98 03/31/18 20:00 03/31/18 23:55 04/01/18 04:19 Temperature 98.5 F 98.6 F 98.3 F Pulse Rate 105 H 98 H 90 Respiratory Rate 17 16 15 Blood Pressure 94/67 L 111/72 112/70 Pulse Oximetry 97 97 98 04/01/18 08:18 Temperature 98.6 F Pulse Rate 72 Respiratory Rate 16 Blood Pressure 104/64 Pulse Oximetry 98 Intake & Output 03/31/18 04/01/18 04/01/18 18:59 06:59 18:59 Intake Total 820 / 820 440 / 440 Output Total 350 / 350 400 / 400 Balance 470 / 470 40 / 40 Intake: IV 100 / 100 200 / 200 Maxipime Inj 2,000 MG In NS Inj 100 / 100 200 / 200 100 ML @ 200 mls/hr IV.SIG Q8H [facility] Rx#:[id number] Oral 720 / 720 240 / 240 Output: Urine 350 / 350 400 / 400 Other: # Voids 3 Date of Last Bowel Movement 03/30/18 04/01/18 # Bowel Movements 1 1 Narrative: GENERAL: Awake alert and oriented 3 talkative and cooperative SKIN: Warm and dry. Old incision below right knee slowly healing CARDIOVASCULAR: Regular rate and rhythm. S1-S2 no S3 or S4 RESPIRATORY: No accessory muscle use. Clear to auscultation. Breath sounds equal bilaterally. GASTROINTESTINAL: Abdomen soft, non-tender, nondistended. MUSCULOSKELETAL: Extremities without clubbing, cyanosis, or edema. No obvious deformities. NEUROLOGICAL: Awake and alert. No obvious cranial nerve deficits. Motor grossly within normal limits. Five out of 5 muscle strength in the arms and legs. Normal speech. PSYCHIATRIC: Appropriate mood and affect; insight and judgment normal. Results - Labs CBC & Chem 7: 03/30/18 04:45 03/30/18 04:45 Assessment and Plan - Plan Neutropenic fever/ Osteosarcoma Started on chemo 1wk prior to admission for osteosarcoma of right leg. She follows at [facility] next treatment April 08. WBC 0.3, Temp 102. U/a negative for UTI, CXR w/ no acute findings. Blood culture growing pseudomonas. ID and oncology consults appreciated. - Follow up repeat cultures. NGTD. - Per ID may need to continue IV antibiotics for two weeks from last negative culture til April 06. Dw ID since pt stable and no fever and resolved leukocytosis , patient can be switched to p.o. Levaquin 750 mg daily for 10 more days. There is a chance that bacteremia can recur since port was not removed but it was a low-grade bacteremia Pseudomonas present in only 1 out of 4 bottles. - Neutropenic Precautions. - s/p Neupogen. Anemia/ Thrombocytopenia Hemoglobin and platelet count have decreased. Exacerbated by menstruation. S/p transfusion. - repeat CBC and transfuse as needed. - follow up with oncology. GI discomfort The pt endorses lower quadrant discomfort, radiating to her back. No CVA tenderness. LFTs not elevated. Seems resolved. - Continue antiemetics as needed w/ Reglan and Compazine. - ADAT. - Maalox as needed. Malnutrition The pt has not been eating much. - trial of Enlive. - replete potassium. DVT Prophylaxis: SCD/Teds Discharge Planning States she is not homeless dw case management
[2018-04-01] MEDS: Senna/Docusate Sodium 8.6/50 MG Tablet PO SCH (09:43)
[2018-04-01] MEDS ORDERED: levoFLOXacin 750 MG Tablet PO SCH ×2 (10:15→11:00)
--- NOTE | 2018-04-01 13:14 | P.DS ---
Date of admission: 03/23/18 04:06 Primary care physician: No Primary Care Physician Attending physician on discharge: Gume Aguilera Anticipated date of discharge: 04/01/18 Brief History from admission: This is a 22-year-old female with recently diagnosed Osteosarcoma who was referred to the ER by her Oncologist, Dr. Arora, at [facility] for evaluation of fever. Pt diagnosed w/ Osteosarcoma on ER visit 02/22/18, was referred to [facility] and started on Chemo 1wk ago. Most of the history provided by patient's older sister who is at bedside. States she was doing well after chemo until today when she started having fever of 102 at home in addition to nausea. Denies SOB, cough, sick contacts. Seen in ER yesterday, 03/22/18 for possible constipation, CT Abd/Pelvis w/ nonobstructive bowel gas pattern and left kidney simple cyst. On arrival, BP 102/59, HR 135, O2 sat 100% on RA, Temp 100.1. WBC 0.3. Platelets 90. Chemistry unremarkable except for GFR 79, BUN 19. Lactic Acid 1.1. UA negative for UTI. CXR with no acute findings. S/p Vanc/ Cefepime in ER. DS: Medications - Discharge Medications Prescriptions: levofloxacin 750 mg PO DAILY 9 Days #9 tab DS: Summary Hospital Course: Neutropenic fever/ Osteosarcoma Started on chemo 1wk prior to admission for osteosarcoma of right leg. She follows at [facility] next treatment April 08. WBC 0.3, Temp 102. U/a negative for UTI, CXR w/ no acute findings. Blood culture growing pseudomonas. ID and oncology consults appreciated. - Follow up repeat cultures. NGTD. - Per ID may need to continue IV antibiotics for two weeks from last negative culture til April 06. Dw ID since pt stable and no fever and resolved leukocytosis , patient can be switched to p.o. Levaquin 750 mg daily for 10 more days. There is a chance that bacteremia can recur since port was not removed but it was a low-grade bacteremia Pseudomonas present in only 1 out of 4 bottles. Dw pt and sister - Neutropenic Precautions. - s/p Neupogen. Anemia/ Thrombocytopenia Hemoglobin and platelet count have decreased. Exacerbated by menstruation. S/p transfusion. - repeat CBC and transfuse as needed. - follow up with oncology. GI discomfort The pt endorses lower quadrant discomfort, radiating to her back. No CVA tenderness. LFTs not elevated. Seems resolved. - Continue antiemetics as needed w/ Reglan and Compazine. - ADAT. - Maalox as needed. Malnutrition The pt has not been eating much. - trial of Enlive. - replete potassium. DVT Prophylaxis: SCD/Teds - Time Spent with Patient Total time spent providing and/or coordinating discharge services: Greater than 30 minutes Exam Vital signs: Vital Signs 03/31/18 17:33 03/31/18 20:00 03/31/18 23:55 Temperature 98.3 F 98.5 F 98.6 F Pulse Rate 93 H 105 H 98 H Respiratory Rate 20 17 16 Blood Pressure 111/72 94/67 L 111/72 Pulse Oximetry 98 97 97 04/01/18 04:19 04/01/18 08:18 Temperature 98.3 F 98.6 F Pulse Rate 90 72 Respiratory Rate 15 16 Blood Pressure 112/70 104/64 Pulse Oximetry 98 98 Intake & Output 03/31/18 04/01/18 04/01/18 18:59 06:59 18:59 Intake Total 820 / 820 440 / 440 Output Total 350 / 350 400 / 400 Balance 470 / 470 40 / 40 Intake: IV 100 / 100 200 / 200 Maxipime Inj 2,000 MG In NS Inj 100 / 100 200 / 200 100 ML @ 200 mls/hr IV.SIG Q8H [facility] Rx#:[id number] Oral 720 / 720 240 / 240 Output: Urine 350 / 350 400 / 400 Other: # Voids 3 Date of Last Bowel Movement 03/30/18 04/01/18 # Bowel Movements 1 1 Narrative: GENERAL: Awake alert and oriented 3 talkative and cooperative SKIN: Warm and dry. Old incision below right knee slowly healing CARDIOVASCULAR: Regular rate and rhythm. S1-S2 no S3 or S4 RESPIRATORY: No accessory muscle use. Clear to auscultation. Breath sounds equal bilaterally. GASTROINTESTINAL: Abdomen soft, non-tender, nondistended. MUSCULOSKELETAL: Extremities without clubbing, cyanosis, or edema. No obvious deformities. NEUROLOGICAL: Awake and alert. No obvious cranial nerve deficits. Motor grossly within normal limits. Five out of 5 muscle strength in the arms and legs. Normal speech. PSYCHIATRIC: Appropriate mood and affect; insight and judgment normal. Results Procedures completed during hospitalization: none Discharge Plan - Discharge Disposition Patient Disposition: 01 Discharge Home - Discharge Condition Condition: Stable - Discharge Order Discharge Orders: Discharge Order (Routine); Ordered 04/01/18 Ordered By: Gume Aguilera - Discharge Details Anticipated Discharge Date/Time: 04/01/18 11:49 - Physicians Team Primary Care Provider: Maritza Raman Attending Provider: Gume Aguilera Other Providers: Fadumo Dawson MD ; Betito Odell MD - Rxs /Orders / Referrals /Forms Prescriptions: New levofloxacin 750 mg Tablet 750 mg PO DAILY 9 Days Qty: 9 RF: 0 Continue bisacodyl [Fleet Bisacodyl] 10 mg/30 mL Enema 10 mg SC DAILY PRN (Reason: Constipation) polyethylene glycol 3350 17 gram Powder In Packet 17 g PO DAILY Referrals: Primary Care Maritza Goins [Primary Care Provider] - See Instructions ( Please call the physician's office to book the appointment to be seen within [appt at [facility]].) - Post Discharge Care Plan Care Plan Goals: Your Health Problems: Goals to Promote Your Health: * To prevent worsening of your condition * To maintain your health at the optimal level Directions to Meet Your Goals: * Take your medications as prescribed * Follow your dietary instruction * Follow activity as directed * Keep your appointments as scheduled * Take your immunizations and boosters as scheduled * If your symptoms worsen call your PCP * If no PCP go to Urgent Care or Emergency Room Smoking is dangerous to your health. Avoid second hand smoke. You may reach the 24-hour crisis hotline for domestic abuse at .
== END 2018-04-01 16:30 | disposition home or self-care (01) ==
LOC: UNDODISIN → HCIN 03-23 04:06
PROVIDERS: ADMIT Internal Medicine; ATTEND Internal Medicine

== ENCOUNTER 2018-08-14 21:48 | Inpatient (IN) ==
--- NOTE | 2018-08-14 22:12 | ED ---
HPI General Chief Complaint: Fever Stated Complaint: fever Time Seen by Provider: 08/14/18 22:02 Source: patient and family Mode of arrival: ambulatory Limitations: no limitations History of Present Illness HPI Narrative: 23-year-old female with diagnosis of osteosarcoma of the right knee since 03/09/18 with surgical excision 06/04/18 under the care of Matthew presents with fever since 5 PM today. Patient has had chills and Reiger. Temperature at home was 102.0 F and patient received acetaminophen. Patient complains of nausea and lightheadedness. Patient has had no headache sore throat earache sinus pressure drainage cough congestion chest pain abdominal pain vomiting diarrhea dysuria frequency urgency decreased urine output or skin rash. Patient's last chemotherapy was 10 days ago included methotrexate and additional chemotherapeutic agent but the family cannot recall this medication. Patient's oncologist is Dr. Krystina Terry. complaint: Reports fever Related Data Home Medications Medication Instructions Recorded Confirmed famotidine 10 mg PO BID 05/07/18 08/14/18 oxycodone 5 mg PO Q4HR PRN 05/07/18 08/14/18 sulfamethoxazole-trimethoprim 1 tab PO BID 05/07/18 08/14/18 dexamethasone 8 mg PO Q12H 08/14/18 08/14/18 gabapentin 300 mg PO TID 08/14/18 08/14/18 lorazepam 1 mg PO QID PRN 08/14/18 08/14/18 oxycodone 10 mg PO Q4-6H PRN 08/14/18 08/14/18 sennosides [senna] 2 tab PO BID PRN 08/14/18 08/14/18 Allergies Allergy/AdvReac Type Severity Reaction Status Date / Time No Known Allergies Allergy Verified 07/04/18 16:38 Review of Systems ROS: all other systems reviewed are negative FOR[facility]LY [facility] Medical History Medical History Osteosarcoma (Acute) Chemotherapy management, encounter for (Acute) Surgical History Surgical History H/O knee surgery (Acute) History of vascular access device (Acute) Family History Family History Father Family history of cancer Social History Social History Substance History: No History of Abuse Second Hand Smoke Exposure: Yes Smoking Status: Never smoker Tobacco Type: Cigarettes, Pipe, Cigars, E-Cigarettes and Smokeless Tobacco How Often Do You Have a Drink Containing Alcohol: Never Hx Recent Travel: No Recent Travel in [facility] within the Last 8 Weeks: No Recent Out of Country Travel within the Last 8 Weeks: No Exam Narrative Exam Narrative: GENERAL: Well-nourished, well-developed patient. SKIN: Focused skin assessment warm/dry. HEAD: Normocephalic. EYES: No scleral icterus. No injection or drainage. NECK: Supple, trachea midline. No JVD or lymphadenopathy. CARDIOVASCULAR: Regular rate and rhythm without murmurs, gallops, or rubs. RESPIRATORY: Breath sounds equal bilaterally. No accessory muscle use. GASTROINTESTINAL: Abdomen soft, non-tender, nondistended. MUSCULOSKELETAL: No cyanosis, or edema. BACK: Nontender without obvious deformity. No CVA tenderness. Course Initial Documented Vital Signs Temperature 99.5 F 08/14/18 21:52 Pulse Rate 133 H 08/14/18 21:52 Respiratory Rate 18 08/14/18 21:52 Blood Pressure 123/60 08/14/18 21:52 Pulse Oximetry 94 L 08/14/18 21:52 Last Documented Vital Signs Temperature 98.1 F 08/16/18 04:00 Pulse Rate 85 08/16/18 04:00 Respiratory Rate 18 08/16/18 04:00 Blood Pressure 111/54 L 08/16/18 04:00 Pulse Oximetry 100 08/16/18 04:00 Medical Decision Making [facility] Narrative Medical Screen Exam Complete: Yes Emergency Medical Condition: Yes Lab Data Result diagrams: 08/15/18 14:35 08/14/18 22:40 POC Results POC Urine Results Negative Lab Results 08/14/18 08/14/18 08/14/18 Range/Units 22:40 22:40 22:40 WBC 0.4 L (4.0-11.0) th/mm3 RBC 2.59 L (4.00-5.30) mil/mm3 Hgb 8.4 L (11.6-15.3) gm/dL Hct 24.4 L (35.0-46.0) % MCV 94.4 (80.0-100.0) fL MCH 32.3 (27.0-34.0) pg MCHC 34.2 (32.0-36.0) % RDW 14.8 (11.6-17.2) % Plt Count 59 L (150-450) th/mm3 MPV 9.0 (7.0-11.0) fL Prelim Diff (Auto) Manual diff required WBC Differential Manual diff final Lymphocytes % (Manual) 90 H (9-44) % Basophils % (Manual) 10 H (0-2) % Differential Comment . Platelet Estimate Low L (Normal) Platelet Morphology Normal (Normal) Ovalocytes (None) PT 11.5 (9.8-11.6) sec INR 1.1 Ratio APTT 35.5 H (23.4-31.7) sec Sodium 133 L (136-145) meq/L Potassium 3.6 (3.5-5.1) meq/L Chloride 99 (98-107) meq/L Carbon Dioxide 23.9 (21.0-32.0) meq/L Anion Gap 10 (5-15) meq/L BUN 16 (7-18) mg/dL Creatinine 0.76 (0.50-1.00) mg/dL Estimated GFR Greater than 89 (>89) mL/min Random Glucose 114 H (74-106) mg/dL Lactic Acid (0.4-2.0) mmol/L Calcium 8.4 L (8.5-10.1) mg/dL Magnesium 1.5 (1.5-2.5) mg/dL Iron (50-170) mcg/dL TIBC (250-450) mcg/dL % Saturation (20-50) % Ferritin (8-252) ng/mL Total Bilirubin 0.7 (0.2-1.0) mg/dL AST 16 (15-37) U/L ALT 100 H (10-53) U/L Alkaline Phosphatase 57 (45-117) U/L Total Protein 6.9 (6.4-8.2) g/dL Albumin 3.4 (3.4-5.0) g/dL Urine Color (Yellw/Straw) Urine Clarity (Clear) Urine pH (5.0-8.5) Ur Specific [place] (1.002-1.035) Urine Protein (Neg-Trace) mg/dL Urine Glucose (UA) (Negative) mg/dL Urine Ketones (Negative) mg/dL Urine Occult Blood (Negative) Urine Nitrate (Negative) Urine Bilirubin (Negative) Urine Urobilinogen (Less than 2) mg/dL Ur Leukocyte Esterase (Negative) Urine RBC (0-3) /hpf Urine WBC (0-5) /hpf Ur Squamous Epith Cells (0-5) /hpf Urine Bacteria (None) /hpf Urine Mucus (Occasional) /lpf Micro UA Comment Ur Microscopic Review Urine Culture Comments Blood Type Blood Type Recheck Antibody Screen MTS Gel Crossmatch 08/14/18 08/14/18 08/15/18 Range/Units 22:40 22:45 00:42 WBC (4.0-11.0) th/mm3 RBC (4.00-5.30) mil/mm3 Hgb (11.6-15.3) gm/dL Hct (35.0-46.0) % MCV (80.0-100.0) fL MCH (27.0-34.0) pg MCHC (32.0-36.0) % RDW (11.6-17.2) % Plt Count (150-450) th/mm3 MPV (7.0-11.0) fL Prelim Diff (Auto) WBC Differential Lymphocytes % (Manual) (9-44) % Basophils % (Manual) (0-2) % Differential Comment Platelet Estimate (Normal) Platelet Morphology (Normal) Ovalocytes (None) PT (9.8-11.6) sec INR Ratio APTT (23.4-31.7) sec Sodium (136-145) meq/L Potassium (3.5-5.1) meq/L Chloride (98-107) meq/L Carbon Dioxide (21.0-32.0) meq/L Anion Gap (5-15) meq/L BUN (7-18) mg/dL Creatinine (0.50-1.00) mg/dL Estimated GFR (>89) mL/min Random Glucose (74-106) mg/dL Lactic Acid 1.4 (0.4-2.0) mmol/L Calcium (8.5-10.1) mg/dL Magnesium (1.5-2.5) mg/dL Iron 193 H (50-170) mcg/dL TIBC 224 L (250-450) mcg/dL % Saturation 86.2 H (20-50) % Ferritin 640 H (8-252) ng/mL Total Bilirubin (0.2-1.0) mg/dL AST (15-37) U/L ALT (10-53) U/L Alkaline Phosphatase (45-117) U/L Total Protein (6.4-8.2) g/dL Albumin (3.4-5.0) g/dL Urine Color Yellow (Yellw/Straw) Urine Clarity Clear (Clear) Urine pH 5.0 (5.0-8.5) Ur Specific [place] 1.020 (1.002-1.035) Urine Protein 30 H (Neg-Trace) mg/dL Urine Glucose (UA) 50 (Negative) mg/dL Urine Ketones Negative (Negative) mg/dL Urine Occult Blood Negative (Negative) Urine Nitrate Negative (Negative) Urine Bilirubin Negative (Negative) Urine Urobilinogen Less than 2 (Less than 2) mg/dL Ur Leukocyte Esterase Negative (Negative) Urine RBC 1 (0-3) /hpf Urine WBC 2 (0-5) /hpf Ur Squamous Epith Cells 1 (0-5) /hpf Urine Bacteria Rare H (None) /hpf Urine Mucus Few H (Occasional) /lpf Micro UA Comment Culture not ind Ur Microscopic Review Not Reportable Urine Culture Comments Culture not ind Blood Type Blood Type Recheck Antibody Screen MTS Gel Crossmatch 08/15/18 08/15/18 08/15/18 Range/Units 14:35 15:36 15:46 WBC 0.2 L (4.0-11.0) th/mm3 RBC 1.99 L (4.00-5.30) mil/mm3 Hgb 6.6 L* (11.6-15.3) gm/dL Hct 18.5 L* (35.0-46.0) % MCV 92.9 (80.0-100.0) fL MCH 33.4 (27.0-34.0) pg MCHC 36.0 (32.0-36.0) % RDW 15.2 (11.6-17.2) % Plt Count 34 L D (150-450) th/mm3 MPV 9.1 (7.0-11.0) fL Prelim Diff (Auto) Slide review pending WBC Differential Manual diff final Lymphocytes % (Manual) 100 H (9-44) % Basophils % (Manual) (0-2) % Differential Comment . Platelet Estimate Low L (Normal) Platelet Morphology Normal (Normal) Ovalocytes 1+ H (None) PT (9.8-11.6) sec INR Ratio APTT (23.4-31.7) sec Sodium (136-145) meq/L Potassium (3.5-5.1) meq/L Chloride (98-107) meq/L Carbon Dioxide (21.0-32.0) meq/L Anion Gap (5-15) meq/L BUN (7-18) mg/dL Creatinine (0.50-1.00) mg/dL Estimated GFR (>89) mL/min Random Glucose (74-106) mg/dL Lactic Acid (0.4-2.0) mmol/L Calcium (8.5-10.1) mg/dL Magnesium (1.5-2.5) mg/dL Iron (50-170) mcg/dL TIBC (250-450) mcg/dL % Saturation (20-50) % Ferritin (8-252) ng/mL Total Bilirubin (0.2-1.0) mg/dL AST (15-37) U/L ALT (10-53) U/L Alkaline Phosphatase (45-117) U/L Total Protein (6.4-8.2) g/dL Albumin (3.4-5.0) g/dL Urine Color (Yellw/Straw) Urine Clarity (Clear) Urine pH (5.0-8.5) Ur Specific [place] (1.002-1.035) Urine Protein (Neg-Trace) mg/dL Urine Glucose (UA) (Negative) mg/dL Urine Ketones (Negative) mg/dL Urine Occult Blood (Negative) Urine Nitrate (Negative) Urine Bilirubin (Negative) Urine Urobilinogen (Less than 2) mg/dL Ur Leukocyte Esterase (Negative) Urine RBC (0-3) /hpf Urine WBC (0-5) /hpf Ur Squamous Epith Cells (0-5) /hpf Urine Bacteria (None) /hpf Urine Mucus (Occasional) /lpf Micro UA Comment Ur Microscopic Review Urine Culture Comments Blood Type O Positive Blood Type Recheck Not needed Antibody Screen Negative MTS Gel Crossmatch See Detail Imaging Data Radiologist's impression: Chest X-Ray 08/14/18 22:08 CONCLUSION: The lungs are clear. ECG Data EKG Prior to Arrival: No Attestation: I personally reviewed and interpreted this ECG as follows: (EKG: Sinus tachycardia rate 134 normal axis ID interval 127 ms QRS duration 91 ms QT 297 ms/QTc [address] elevation or ectopy) Discharge Plan Discharge Disposition Patient Disposition: 30 Still Patient Discharge Condition Condition: Stable Discharge Details Diagnosis: Sepsis, Osteosarcoma, Neutropenia Physicians Team ED Provider: Lynette Veronica Attending Provider: Jaquelin Locke Other Providers: Brown Maria ; Rome Boyle Alexandra Status ED Status: Left Department Discharge Information Discharge Date/Time: 08/15/18 02:17
[2018-08-14] MEDS ORDERED: Sod Chloride 0.9% Inj 1,000 ML IV.SIG SCH (22:15)
[2018-08-14] MEDS ORDERED: Sod Chloride 0.9% Inj 800 ML IV.SIG SCH (22:15)
--- NOTE | 2018-08-14 22:35 | XR ---
EXAM DATE: 08/14/2018 10:33 PM EST AGE/SEX: 23 years / Female INDICATIONS: Fever. CLINICAL DATA: This is the patient's initial encounter. Patient reports that signs and symptoms have been present for 1 day and indicates a pain score of 0/10. MEDICAL/SURGICAL HISTORY: . Osteosarcoma. . [place] [facility] [place]. . FINDINGS: A single AP view of the chest demonstrates the lungs to be symmetrically aerated without evidence of mass, infiltrate or effusion. The cardiomediastinal contours are unremarkable. Osseous structures a re intact. [id number] catheter tip in the distal superior vena cava. CONCLUSION: The lungs are clear. Electronically signed by: James Stephens MD 08/14/2018 10:34 PM EST
[2018-08-14 22:59] LABS: Hematocrit 24.4 % (35.0-46.0); Hemoglobin 8.4 gm/dL (11.6-15.3); Mean Corpuscular HGB Conc 34.2 % (32.0-36.0); Mean Corpuscular Hemoglobin 32.3 pg (27.0-34.0); Mean Corpuscular Volume 94.4 fL (80.0-100.0); Platelet Count 59 th/mm3 (150-450); Red Blood Count 2.59 mil/mm3 (4.00-5.30); Red Cell Distribution Width 14.8 % (11.6-17.2); White Blood Count 0.4 th/mm3 (4.0-11.0)
[2018-08-14] MEDS ORDERED: Acetaminophen 325 MG Tablet PO ONE (23:07)
[2018-08-14 23:19] LABS: Alanine Aminotransferase 100 U/L (10-53); Albumin 3.4 g/dL (3.4-5.0); Anion Gap 10 meq/L (5-15); Aspartate Aminotransferase 16 U/L (15-37); Blood Urea Nitrogen 16 mg/dL (7-18); Calcium 8.4 mg/dL (8.5-10.1); Carbon Dioxide 23.9 meq/L (21.0-32.0); Chloride 99 meq/L (98-107); Glomerular Filtration Rate Greater Than 89 mL/min (>89); Glucose,Random 114 mg/dL (74-106); Magnesium 1.5 mg/dL (1.5-2.5); Potassium 3.6 meq/L (3.5-5.1); Sodium 133 meq/L (136-145)
[2018-08-14 23:21] LABS: Alkaline Phosphatase 57 U/L (45-117); Total Protein 6.9 g/dL (6.4-8.2)
[2018-08-14 23:54] LABS: Activated Partial Thrombo Time 35.5 sec (23.4-31.7); INR 1.1 Ratio; Prothrombin Time 11.5 sec (9.8-11.6)
[2018-08-15 00:31] LABS: Lymphocytes 90 % (9-44); Platelet Morphology Normal (Normal)
[2018-08-15] MEDS ORDERED: Vancomycin Inj 1,000 MG in Sodium Chlor 0.9% Inj 250 ML IV.SIG ONE (00:55)
[2018-08-15 00:59] LABS: Bacteria,Urine Rare /hpf; Bilirubin,Urine Negative (Negative); Clarity,Urine Clear (Clear); Color,Urine Yellow (Yellw/Straw); Glucose,Urine (UA) 50 mg/dL (Negative); Leukocyte Esterase,Urine Negative (Negative); Mucus,Urine Few /lpf (Occasional); Nitrite,Urine Negative (Negative); Squamous Epithelial Cell,Urine 1 /hpf (0-5)
[2018-08-15] MEDS ORDERED: Sod Chloride 0.9% Inj 1,000 ML IV.SIG SCH (01:00)
[2018-08-15] MEDS ORDERED: Bisacodyl 10 MG Supp RECTAL PRN (01:13)
[2018-08-15] MEDS ORDERED: Acetaminophen 325 MG Tablet PO PRN (01:13)
[2018-08-15] MEDS ORDERED: Vancomycin Consult Pharmacy OTHER PRN (01:16)
[2018-08-15] MEDS ORDERED: Temazepam 15 MG Capsule PO PRN (01:16)
[2018-08-15] MEDS ORDERED: LORazepam 1 MG Tablet PO PRN (01:17)
[2018-08-15] MEDS: Sod Chloride 0.9% Inj 1,000 ML IV.CONT SCH (02:45)
[2018-08-15] MEDS ORDERED: Vancomycin Inj 500 MG in Sodium Chlor 0.9% Inj 100 ML IV.SIG ONE (03:00)
--- NOTE | 2018-08-15 04:07 | P.HP ---
History of Present Illness Service: [facility] Primary Care Physician: Sharmaine Terry History of Present Illness: 23-year-old female with a past medical history significant for osteosarcoma status post surgical resection currently on chemotherapy presents to the emergency department for evaluation of fever, lightheadedness, nausea, sore throat and abdominal pain. The patient reports that she was in her usual state of health until 5 PM yesterday at which time she developed a fever to 102.3. She states she has had a sore throat with a nonproductive cough since that time. She also endorses abdominal pain and nausea without emesis. She states she feels generally weak and fatigued. Her oncologist is Dr. Terry from [facility]. Last chemotherapy was 08/05/18 with next scheduled appointment 08/27. Patient denies any chest pain or shortness of breath. Inpatient Certification: I certify that the inpatient services were ordered in accordance with Medicare regulations governing the order. This includes certification that hospital inpatient services are reasonable and necessary and in the case of services not specified as inpatient-only under 42 CFR 419.22(n), that they are appropriately provided as inpatient services in accordance to with the 2-midnight benchmark under 43 CFR 412.3(e) Estimated Total Length of Stay (Days): 3 Plans for Post Hospital Care: Home Review of Systems All other systems reviewed negative except as stated in HPI PMFSH - History History Provided By: Patient - Medical History Medical History: Medical History (Last Reviewed 08/15/18 @ 03:59 by Gogo Larsen MD) Osteosarcoma (Acute) Chemotherapy management, encounter for - Surgical History Surgical History: Surgical History (Last Reviewed 08/15/18 @ 03:59 by Gogo Larsen MD) H/O knee surgery History of vascular access device - Family History Family History: Family History (Last Updated 08/15/18 @ 04:00 by Gogo Larsen MD) Father Family history of cancer Other Coronary artery disease Diabetes mellitus - Social History I have reviewed the patient's Social History: Yes - Tobacco History Second Hand Smoke Exposure: Yes Tobacco Use In Past 30 Days: No Smoking Status: Never smoker Tobacco Type: Cigarettes, Pipe, Cigars, E-Cigarettes, Smokeless Tobacco - Alcohol History How Often Do You Have a Drink Containing Alcohol: Never - Substance Use History Substance History: No History of Abuse - Travel History History of Recent Travel: No Recent Travel in the [place] Within the Last 8 Weeks: No Recent Travel Out of the Country Within the Last 8 Weeks: No - Immunization History Tetanus Immunization: <5 Years Hx Influenza Vaccine This Season: Yes Medications and Allergies Active Medications: Active Medications Acetaminophen (Tylenol) 650 mg PO Q4H PRN PRN Reason: Temp > 100.4 Al Hydroxide/Mg Hydroxide (Milk Of Magnesia Liq) 30 ml PO Q12H PRN PRN Reason: Mild Constipation Bisacodyl (Dulcolax Supp) 10 mg RECTAL DAILY PRN PRN Reason: SEVERE CONSITIPATION Dexamethasone Sodium Phosphate (Decadron Inj) 4 mg IV.PUSH Q6HR NEGRITA Famotidine (Pepcid) 10 mg PO BID NEGRITA Gabapentin (Neurontin) 300 mg PO TID NEGRITA Cefepime HCl 2,000 mg/ Sodium (Chloride) 100 mls @ 200 mls/hr IV.SIG Q8H NEGRITA Sodium Chloride (Ns Inj) 1,000 mls @ 100 mls/hr IV.CONT .Q10H NEGRITA Last Admin: 08/15/18 02:45 Dose: 100 mls/hr Acetaminophen (Ofirmev Inj) 1,000 mg in 100 mls @ 400 mls/hr IV.SIG ONCE ONE Stop: 08/15/18 04:14 Lactulose (Lactulose Liq) 30 ml PO DAILY PRN PRN Reason: SEVERE CONSITIPATION Lorazepam (Ativan) 1 mg PO QID PRN PRN Reason: ANXIETY Miscellaneous (Pill Splitter) 1 each OTHER UNSCH PRN PRN Reason: PILL SPIT Ondansetron HCl (Zofran Inj) 4 mg IV.PUSH Q6H PRN PRN Reason: NAUSEA OR VOMITING Last Admin: 08/15/18 03:18 Dose: 4 mg Oxycodone HCl (Roxicodone) 10 mg PO Q4H PRN PRN Reason: Pain 7-10 Oxycodone HCl (Roxicodone) 5 mg PO Q4H PRN PRN Reason: PAIN 3-6 Pharmacy Profile Note (Vancomycin Consult Pharmacy) 1 each OTHER UNSCH PRN PRN Reason: Pharmacy to dose Senna/Docusate Sodium (Gege-Colace) 1 tab PO BID NEGRITA Sennosides (Senokot) 17.2 mg PO BID PRN PRN Reason: Constipation Allergies Allergy/AdvReac Type Severity Reaction Status Date / Time No Known Allergies Allergy Verified 07/04/18 16:38 Home Medications Medication Instructions Recorded Confirmed Type famotidine 10 mg PO BID 05/07/18 08/14/18 History oxycodone 5 mg PO Q4HR PRN 05/07/18 08/14/18 History sulfamethoxazole-trimethoprim 1 tab PO BID 05/07/18 08/14/18 History dexamethasone 8 mg PO Q12H 08/14/18 08/14/18 History gabapentin 300 mg PO TID 08/14/18 08/14/18 History lorazepam 1 mg PO QID PRN 08/14/18 08/14/18 History oxycodone 10 mg PO Q4-6H PRN 08/14/18 08/14/18 History sennosides [senna] 2 tab PO BID PRN 08/14/18 08/14/18 History Exam Vital signs: Vital Signs 08/14/18 21:52 08/14/18 22:17 08/15/18 00:10 Temperature 99.5 F 101.7 F H 100.1 F H Pulse Rate 133 H Respiratory Rate 18 Blood Pressure 123/60 Pulse Oximetry 94 L 08/15/18 00:25 Temperature Pulse Rate 126 H Respiratory Rate 16 Blood Pressure 118/69 Pulse Oximetry 100 Intake & Output 08/14/18 08/14/18 08/15/18 06:59 18:59 06:59 Intake Total 2900 / 2900 Balance 2900 / 2900 Weight 65.3 kg Intake: IV 2900 / 2900 Maxipime Inj 2,000 MG In NS Inj 100 / 100 100 ML @ 200 mls/hr IV.SIG ONCE ONE Rx#:[id number] NS Inj 1,000 ML @ 1000 mls/hr 2800 / 2800 IV.SIG BOLUS NEGRITA Rx#:[id number] Other: Weight On Admission 65.3 kg Narrative: Gen.: Ill-appearing patient in no acute distress. Head: Normocephalic. Atraumatic. EENT: Pupils equal round and reactive to light. Nose without drainage. Airway intact. Throat without injection. Cardiovascular: Regular rate and rhythm. No murmurs, rubs or gallops. Respiratory: Lungs clear to auscultation bilaterally. No wheezes or rhonchi. Abdomen: Soft, nontender, nondistended. No peritoneal signs. Musculoskeletal: No gross deformities. No edema. Skin: No obvious rashes or erythema. Neuro: Sensory and motor grossly intact. Cranial nerves II through XII grossly intact. Results - Labs CBC & Chem 7: 08/14/18 22:40 08/14/18 22:40 Labs: Laboratory Results - last 24 hr 08/14/18 08/14/18 08/14/18 22:40 22:40 22:40 WBC 0.4 L RBC 2.59 L Hgb 8.4 L Hct 24.4 L MCV 94.4 MCH 32.3 MCHC 34.2 RDW 14.8 Plt Count 59 L MPV 9.0 Prelim Diff (Auto) Manual diff required WBC Differential Manual diff final Lymphocytes % (Manual) 90 H Basophils % (Manual) 10 H Differential Comment . Platelet Estimate Low L Platelet Morphology Normal PT 11.5 INR 1.1 APTT 35.5 H Sodium 133 L Potassium 3.6 Chloride 99 Carbon Dioxide 23.9 Anion Gap 10 BUN 16 Creatinine 0.76 Estimated GFR Greater than 89 Random Glucose 114 H Lactic Acid Calcium 8.4 L Magnesium 1.5 Total Bilirubin 0.7 AST 16 ALT 100 H Alkaline Phosphatase 57 Total Protein 6.9 Albumin 3.4 Urine Color Urine Clarity Urine pH Ur Specific [place] Urine Protein Urine Glucose (UA) Urine Ketones Urine Occult Blood Urine Nitrate Urine Bilirubin Urine Urobilinogen Ur Leukocyte Esterase Urine RBC Urine WBC Ur Squamous Epith Cells Urine Bacteria Urine Mucus Micro UA Comment Ur Microscopic Review Urine Culture Comments 08/14/18 08/15/18 22:45 00:42 WBC RBC Hgb Hct MCV MCH MCHC RDW Plt Count MPV Prelim Diff (Auto) WBC Differential Lymphocytes % (Manual) Basophils % (Manual) Differential Comment Platelet Estimate Platelet Morphology PT INR APTT Sodium Potassium Chloride Carbon Dioxide Anion Gap BUN Creatinine Estimated GFR Random Glucose Lactic Acid 1.4 Calcium Magnesium Total Bilirubin AST ALT Alkaline Phosphatase Total Protein Albumin Urine Color Yellow Urine Clarity Clear Urine pH 5.0 Ur Specific [place] 1.020 Urine Protein 30 H Urine Glucose (UA) 50 Urine Ketones Negative Urine Occult Blood Negative Urine Nitrate Negative Urine Bilirubin Negative Urine Urobilinogen Less than 2 Ur Leukocyte Esterase Negative Urine RBC 1 Urine WBC 2 Ur Squamous Epith Cells 1 Urine Bacteria Rare H Urine Mucus Few H Micro UA Comment Culture not ind Ur Microscopic Review Not Reportable Urine Culture Comments Culture not ind - Imaging Impressions Chest X-Ray 08/14/18 22:08 CONCLUSION: The lungs are clear. Caprini VTE Risk Assessment Caprini VTE Risk Assessment: No/Low Risk (score <= 1) Caprini Risk Assessment Model: Point Value = 1 Point Value = 2 Point Value = 3 Point Value = 5 Age 41-60 Minor surgery BMI > 25 kg/m2 Swollen legs Varicose veins or History of unexplained or recurrent spontaneous Oral contraceptives or hormone replacement Sepsis (< 1 month) Serious lung disease, including pneumonia (< 1 month) Abnormal pulmonary function Acute myocardial infarction Congestive heart failure (< 1 month) History of inflammatory bowel disease Medical patient at bed rest Age 61-74 Arthroscopic surgery Major open surgery (> 45 min) Laparoscopic surgery (> 45 min) Malignancy Confined to bed (> 72 hours) Immobilizing plaster cast Central venous access Age >= 75 History of VTE Family history of VTE Factor V Leiden Prothrombin [id number] Lupus anticoagulant Anticardiolipin antibodies Elevated serum homocysteine Heparin-induced thrombocytopenia Other congenital or acquired thrombophilia Stroke (< 1 month) Elective arthroplasty Hip, pelvis, or leg fracture Acute spinal cord injury (< 1 month) Prophylaxis Regimen: Total Risk Factor Score Risk Level Prophylaxis Regimen 0-1 Low Early ambulation 2 Moderate Order ONE of the following: *Sequential Compression Device (SCD) *Heparin 5000 units SQ BID 3-4 Higher Order ONE of the following medications: *Heparin 5000 units SQ TID *Enoxaparin/Lovenox 40 mg SQ daily (WT < 150 kg, CrCl > 30 mL/min) *Enoxaparin/Lovenox 30 mg SQ daily (WT < 150 kg, CrCl > 10-29 mL/min) *Enoxaparin/Lovenox 30 mg SQ BID (WT < 150 kg, CrCl > 30 mL/min) AND/OR *Sequential Compression Device (SCD) 5 or more Highest Order ONE of the following medications: *Heparin 5000 units SQ TID (Preferred with Epidurals) *Enoxaparin/Lovenox 40 mg SQ daily (WT < 150 kg, CrCl > 30 mL/min) *Enoxaparin/Lovenox 30 mg SQ daily (WT < 150 kg, CrCl > 10-29 mL/min) *Enoxaparin/Lovenox 30 mg SQ BID (WT < 150 kg, CrCl > 30 mL/min) AND *Sequential Compression Device (SCD) Assessment and Plan - Plan Assessment/plan: 1. Neutropenic fever Chest x-ray negative for acute process UA negative Blood cultures pending Oncology consulted, appreciate recommendations Vancomycin and cefepime 2. Osteosarcoma Patient's oncologist is Dr. Terry at [facility] Oncology consulted as above Continue steroids, oxycodone FEN Regular diet as tolerated Electrolytes: Monitor and replete as needed NS at 70 cc/hour
[2018-08-15] MEDS: Famotidine 20 MG Tablet PO SCH ×2 (09:19→20:42)
[2018-08-15] MEDS: Gabapentin 300 MG Capsule PO SCH ×3 (09:20→17:44)
[2018-08-15] MEDS: Senna/Docusate Sodium 8.6/50 MG Tablet PO SCH ×2 (09:20→20:42)
--- NOTE | 2018-08-15 11:34 | MB ---
cc: Rome Boyle MD DATE: 08/15/2018 ATTENDING PHYSICIAN: Dr. Larsen REASON FOR CONSULTATION: Oncology consult. The patient with osteosarcoma on chemotherapy, presented with a neutropenic fever. 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 She has been seeing Dr. Terry at [facility] since then. She was given chemotherapy and had surgical resection in June 2018. She did not resume chemotherapy recently. The patient cannot provide specific details. Apparently, her last chemotherapy was 08/05/2018. It sounded like she also receive Neulasta. She was doing well until yesterday when she developed a fever up to 102.3. She has sore throat. She has nausea and vomited once last night. She has dizziness and abdominal discomfort. She stated she had a dry cough. She attributed her sore throat for not drinking enough water. She stated she had developed neutropenic fever with her prior chemotherapy, and each time she was transferred back to [facility] for further management. She is feeling a little better this morning. She is still febrile. She denies any chills. She has no headache. She denies any neck stiffness. She denies any chest pain or palpitations. She denies any shortness of breath. She denies any diarrhea or dysuria. PAST MEDICAL HISTORY: Osteosarcoma right knee. PAST SURGICAL HISTORY: Surgical resection of the osteosarcoma 06/2018 port placement. FAMILY HISTORY: Coronary artery disease, diabetes. She is not sure if cancer runs in the family. SOCIAL HISTORY: No tobacco or alcohol use. ALLERGIES: NO KNOWN DRUG ALLERGIES. CURRENT MEDICATIONS: 1. Cefepime. 2. Decadron. 3. Famotidine. 4. Neurontin. 5. Gege-Colace. REVIEW OF SYSTEMS: CONSTITUTIONAL: As above. EYES: Negative. ENT: Negative. CARDIOVASCULAR: She had chest pressure or palpitation. RESPIRATORY: Denies shortness of breath. She has a dry cough. GASTROINTESTINAL: As above. GENITOURINARY: Negative. MUSCULOSKELETAL: As above. HEMATOLOGIC: As above. ENDOCRINE: Negative. DERMATOLOGY: As above. NEUROLOGIC: Negative. PSYCHIATRIC: She is anxious. PHYSICAL EXAMINATION: VITAL SIGNS: Temperature is 102.6, blood pressure 98/54, O2 saturation 90% on room air. GENERAL: She is alert, oriented x3, no acute distress. HEENT: Alopecia. Pupils equal, round, reactive to light. Oropharynx dry mucosa. NECK: No thyromegaly. No palpable mass. LYMPHATIC: No palpable cervical, clavicular, axillary, or inguinal lymph nodes. CARDIOVASCULAR: Regular S1, S2. No murmurs. Slightly tachycardic. LUNGS: Clear to auscultation anteriorly. ABDOMEN: Soft, nontender. Cannot palpate liver or spleen. EXTREMITIES: The right lower extremity in the brace still is tender around the right knee surgical site. I do not see any erythema. No open sore. NEUROLOGIC: Nonfocal. LABORATORY DATA: WBC 0.4, hemoglobin 8.4, platelet count 59,000, creatinine 0.76, ALT 100. ASSESSMENT: 1. Pancytopenia due to recent chemotherapy. It is unclear what regimen, the patient is receiving at [facility] and she is not able to tell me the name of the drug. It sounded like she has received her Neulasta injection after the chemotherapy. She now has febrile neutropenia. Urinalysis is unremarkable. Chest x-ray did not show any infiltrate. Culture is still pending. She was started on cefepime and vancomycin. She is feeling a little better. Hemoglobin is 8.4 and may trend lower after hydration. Platelet count is down to 59,000 and we will continue to monitor her. We will initiate neutropenic fever protocol. I will also get infectious disease involved since she has persistent fever this morning. 2. Right knee osteosarcoma. She received neoadjuvant chemotherapy followed by surgical resection 06/2018. She is now back on adjuvant chemotherapy. She has been managed by Dr. Terry at [facility] group. The patient has been transferred back to [facility] each time she has any complication with chemotherapy. We will try to contact Dr. Terry's office to see if she wants the patient to be transferred over there. 3. Hyponatremia due to dehydration. RECOMMENDATION: 1. Continue cefepime and vancomycin pending blood culture. 1. Consult infectious disease. 2. Start neutropenic fever precaution. 3. We will contact Dr. Terry's office to see if the patient will need to be transferred over to [facility] for further management. 4. The patient has received Neulasta and she does not need Neupogen at this time. Thank you for asking me to see this patient. MD Kumar Blandon , 08:04 AM , 08:17 AM MTDShawn
[2018-08-15] MEDS: Vancomycin Inj 1,000 MG in Sodium Chlor 0.9% Inj 250 ML IV.SIG SCH ×2 (13:44→21:43)
--- NOTE | 2018-08-15 13:48 | P.CONID ---
History of Present Illness Service: ID Consult date: 08/15/18 Requesting Physician: Jaquelin Locke Reason for Consult: neutropenic fever Primary Care Provider: Sharmaine Terry History of Present Illness: 23 yo female with R knee osteosarcoma, sp resection with reconstructon in Sep now on chemotherapy last chemo tx last week presented with 1 day of fevers up to 102 F and ANC of 0 No localizing complaints She does have some R knee pain and sensitivity + poor appetite, nausea, vomiting , unable to hold PO pt was started on cefepime, vancomycin No fever since 4am Bl clx NGTD @ 1 day CXR negative Review of Systems All other systems reviewed negative except as stated in HPI PMFSH - History History Provided By: Patient - Medical History Medical History: Medical History (Last Reviewed 08/15/18 @ 13:38 by Jaqueline Barrow MD) Osteosarcoma (Acute) Chemotherapy management, encounter for - Surgical History Surgical History: Surgical History (Last Reviewed 08/15/18 @ 13:38 by Jaqueline Barrow MD) H/O knee surgery History of vascular access device - Family History Family History: Family History (Last Reviewed 08/15/18 @ 13:38 by Jaqueline Barrow MD) Father Family history of cancer Other Coronary artery disease Diabetes mellitus - Tobacco History Second Hand Smoke Exposure: Yes Tobacco Use In Past 30 Days: No Smoking Status: Never smoker Tobacco Type: Cigarettes, Pipe, Cigars, E-Cigarettes, Smokeless Tobacco - Alcohol History How Often Do You Have a Drink Containing Alcohol: Never - Substance Use History Substance History: No History of Abuse - Travel History History of Recent Travel: No Recent Travel in the [place] Within the Last 8 Weeks: No Recent Travel Out of the Country Within the Last 8 Weeks: No - Immunization History Tetanus Immunization: <5 Years Hx Influenza Vaccine This Season: Yes Medications and Allergies Active Medications: Active Medications Acetaminophen (Tylenol) 650 mg PO Q4H PRN PRN Reason: Temp > 100.4 Al Hydroxide/Mg Hydroxide (Milk Of Magnesia Liq) 30 ml PO Q12H PRN PRN Reason: Mild Constipation Bisacodyl (Dulcolax Supp) 10 mg RECTAL DAILY PRN PRN Reason: SEVERE CONSITIPATION Dexamethasone Sodium Phosphate (Decadron Inj) 4 mg IV.PUSH Q6HR [facility] Last Admin: 08/15/18 12:34 Dose: 4 mg Famotidine (Pepcid) 10 mg PO BID [facility] Last Admin: 08/15/18 09:19 Dose: 10 mg Gabapentin (Neurontin) 300 mg PO TID [facility] Last Admin: 08/15/18 12:34 Dose: 300 mg Cefepime HCl 2,000 mg/ Sodium (Chloride) 100 mls @ 200 mls/hr IV.SIG Q8H [facility] Last Infusion: 08/15/18 06:52 Dose: Infused Sodium Chloride (Ns Inj) 1,000 mls @ 70 mls/hr IV.CONT .[id number] [facility] Last Infusion: 08/15/18 13:00 Dose: 70 mls/hr Vancomycin HCl 1,000 mg/ (Sodium Chloride) 250 mls @ 250 mls/hr IV.SIG Q8H [facility] Lactulose (Lactulose Liq) 30 ml PO DAILY PRN PRN Reason: SEVERE CONSITIPATION Lorazepam (Ativan) 1 mg PO QID PRN PRN Reason: ANXIETY Miscellaneous (Pill Splitter) 1 each OTHER UNSCH PRN PRN Reason: PILL SPIT Miscellaneous Information ([facility] Ordered Lab Info) 0 each OTHER ONCE ONE Stop: 08/16/18 05:46 Ondansetron HCl (Zofran Inj) 4 mg IV.PUSH Q6H PRN PRN Reason: NAUSEA OR VOMITING Last Admin: 08/15/18 09:20 Dose: 4 mg Oxycodone HCl (Roxicodone) 10 mg PO Q4H PRN PRN Reason: Pain 7-10 Oxycodone HCl (Roxicodone) 5 mg PO Q4H PRN PRN Reason: PAIN 3-6 Pharmacy Profile Note (Vancomycin Consult Pharmacy) 1 each OTHER UNSCH PRN PRN Reason: Pharmacy to dose Senna/Docusate Sodium (Gege-Colace) 1 tab PO BID [facility] Last Admin: 08/15/18 09:20 Dose: 1 tab Sennosides (Senokot) 17.2 mg PO BID PRN PRN Reason: Constipation Allergies Allergy/AdvReac Type Severity Reaction Status Date / Time No Known Allergies Allergy Verified 07/04/18 16:38 Home Medications Medication Instructions Recorded Confirmed Type famotidine 10 mg PO BID 05/07/18 08/14/18 History oxycodone 5 mg PO Q4HR PRN 05/07/18 08/14/18 History sulfamethoxazole-trimethoprim 1 tab PO BID 05/07/18 08/14/18 History dexamethasone 8 mg PO Q12H 08/14/18 08/14/18 History gabapentin 300 mg PO TID 08/14/18 08/14/18 History lorazepam 1 mg PO QID PRN 08/14/18 08/14/18 History oxycodone 10 mg PO Q4-6H PRN 08/14/18 08/14/18 History sennosides [senna] 2 tab PO BID PRN 08/14/18 08/14/18 History Exam Vital signs: Vital Signs 08/14/18 21:52 08/14/18 22:17 08/15/18 00:10 Temperature 99.5 F 101.7 F H 100.1 F H Pulse Rate 133 H Respiratory Rate 18 Blood Pressure 123/60 Pulse Oximetry 94 L 08/15/18 00:25 08/15/18 02:00 08/15/18 04:00 Temperature 101.3 F H 102.6 F H Pulse Rate 126 H 121 H 123 H Respiratory Rate 16 20 15 Blood Pressure 118/69 108/57 L 98/54 L Pulse Oximetry 100 99 98 08/15/18 08:00 08/15/18 12:00 Temperature 98.2 F 97.9 F Pulse Rate 84 99 H Respiratory Rate 17 15 Blood Pressure 121/61 104/67 Pulse Oximetry 98 100 Intake & Output 08/14/18 08/15/18 08/15/18 18:59 06:59 18:59 Intake Total 4050 / 4050 750 / 750 Balance 4050 / 4050 750 / 750 Weight 65.3 kg Intake: IV 3450 / 3450 750 / 750 NS Inj 1,000 ML @ 70 mls/hr IV. 750 / 750 CONT .[id number] [facility] Rx#:[id number] Ofirmev Inj 1,000 mg In 100 ml 100 / 100 @ 400 mls/hr IV.SIG ONCE ONE Rx #:[id number] Maxipime Inj 2,000 MG In NS Inj 200 / 200 100 ML @ 200 mls/hr IV.SIG Q8H [facility] Rx#:[id number] NS Inj 1,000 ML @ 1000 mls/hr 2800 / 2800 IV.SIG BOLUS [facility] Rx#:[id number] Vancomycin Inj 1,000 MG In NS 250 / 250 Inj 250 ML @ 250 mls/hr IV.SIG ONCE ONE Rx#:[id number] Vancomycin Inj 500 MG In NS Inj 100 / 100 100 ML @ 200 mls/hr IV.SIG ONCE ONE Rx#:[id number] Oral 600 / 600 Other: # Voids 1 Date of Last Bowel Movement 08/15/18 Weight On Admission 65.3 kg - Constitutional no acute distress, average body habitus, somnolent Comments: ill appearing - Routine HEENT Exam Head: Present: normocephalic, atraumatic Eye: Present: EOMI, PERRL. Absent: conjunctival icterus ENT: Present: mucous membranes moist, oropharynx clear, dentition normal - Routine Neck Exam Present: supple, full ROM. Absent: JVD - Routine Chest/Breast/Axilla Exam Comments: PORT in place L chest - OK - Routine Respiratory Exam Present: CTA bilaterally. Absent: respiratory distress, rhonchi - Routine Cardiovascular Exam Present: RRR, S1, S2. Absent: murmur, gallop, rubs - Routine Abdominal Exam Present: soft, normoactive bowel sounds. Absent: tenderness, distended, organomegaly, mass - Routine Extremities Exam Absent: cyanosis, clubbing, edema Comments: RLE with well healed scars, brace in place very tender to palpation no edema, no erythema - Routine Skin Exam Present: intact, dry, warm, alopecia. Absent: rash - Routine Neurological Exam Present: alert, oriented X3, CN II-XII intact. Absent: sensory deficit, motor deficit - Routine Psychiatric Exam Present: normal affect, normal thought process, cooperative Results - Labs CBC & Chem 7: 08/14/18 22:40 08/14/18 22:40 Labs: Laboratory Results - last 24 hr 08/14/18 08/14/18 08/14/18 22:40 22:40 22:40 WBC 0.4 L RBC 2.59 L Hgb 8.4 L Hct 24.4 L MCV 94.4 MCH 32.3 MCHC 34.2 RDW 14.8 Plt Count 59 L MPV 9.0 Prelim Diff (Auto) Manual diff required WBC Differential Manual diff final Lymphocytes % (Manual) 90 H Basophils % (Manual) 10 H Differential Comment . Platelet Estimate Low L Platelet Morphology Normal PT 11.5 INR 1.1 APTT 35.5 H Sodium 133 L Potassium 3.6 Chloride 99 Carbon Dioxide 23.9 Anion Gap 10 BUN 16 Creatinine 0.76 Estimated GFR Greater than 89 Random Glucose 114 H Lactic Acid Calcium 8.4 L Magnesium 1.5 Total Bilirubin 0.7 AST 16 ALT 100 H Alkaline Phosphatase 57 Total Protein 6.9 Albumin 3.4 Urine Color Urine Clarity Urine pH Ur Specific [place]blank Urine Protein Urine Glucose (UA) Urine Ketones Urine Occult Blood Urine Nitrate Urine Bilirubin Urine Urobilinogen Ur Leukocyte Esterase Urine RBC Urine WBC Ur Squamous Epith Cells Urine Bacteria Urine Mucus Micro UA Comment Ur Microscopic Review Urine Culture Comments 08/14/18 08/15/18 22:45 00:42 WBC RBC Hgb Hct MCV MCH MCHC RDW Plt Count MPV Prelim Diff (Auto) WBC Differential Lymphocytes % (Manual) Basophils % (Manual) Differential Comment Platelet Estimate Platelet Morphology PT INR APTT Sodium Potassium Chloride Carbon Dioxide Anion Gap BUN Creatinine Estimated GFR Random Glucose Lactic Acid 1.4 Calcium Magnesium Total Bilirubin AST ALT Alkaline Phosphatase Total Protein Albumin Urine Color Yellow Urine Clarity Clear Urine pH 5.0 Ur Specific [place]blank 1.020 Urine Protein 30 H Urine Glucose (UA) 50 Urine Ketones Negative Urine Occult Blood Negative Urine Nitrate Negative Urine Bilirubin Negative Urine Urobilinogen Less than 2 Ur Leukocyte Esterase Negative Urine RBC 1 Urine WBC 2 Ur Squamous Epith Cells 1 Urine Bacteria Rare H Urine Mucus Few H Micro UA Comment Culture not ind Ur Microscopic Review Not Reportable Urine Culture Comments Culture not ind - Imaging Impressions Chest X-Ray 08/14/18 22:08 CONCLUSION: The lungs are clear. Assessment and Plan - Plan R knee osteosarcoma sp chemo Neutropenic fever, non localizing fever resolved with current abx choice cont cefepime and vancomycin fu culture untill final fu ANC fu clinically
[2018-08-15 15:01] LABS: Mean Corpuscular Hemoglobin 33.4 pg (27.0-34.0); Mean Corpuscular Volume 92.9 fL (80.0-100.0); Mean Platelet Volume 9.1 fL (7.0-11.0); Platelet Count 34 th/mm3 (150-450); Red Blood Count 1.99 mil/mm3 (4.00-5.30); Red Cell Distribution Width 15.2 % (11.6-17.2); White Blood Count 0.2 th/mm3 (4.0-11.0)
[2018-08-15 15:06] LABS: Hemoglobin 6.6 gm/dL (11.6-15.3)
[2018-08-15 15:07] LABS: Hematocrit 18.5 % (35.0-46.0)
[2018-08-15 15:31] LABS: Lymphocytes 100 % (9-44); Ovalocytes 1+; Platelet Morphology Normal (Normal)
[2018-08-15 16:15] LABS: % Iron Saturation 86.2 % (20-50)
--- NOTE | 2018-08-15 18:08 | ECG ---
Date Performed: 08/14/2018 Time Performed: 22:23:00 PTAGE: 23 years EKG: SINUS TACHYCARDIA NONSPECIFIC T-WAVE ABNORMALITY ABNORMAL RHYTHM ECG PREVIOUS TRACING : 07/04/2018 18.07 Since the previous tracing, no significant change noted DOCTOR: Hakan Clark Interpretating Date/Time 08/15/2018 18:07:14
[2018-08-16] MEDS ORDERED: Pharmacy Ordered Lab Info OTHER ONE (05:45)
[2018-08-16] MEDS: Vancomycin Inj 1,000 MG in Sodium Chlor 0.9% Inj 250 ML IV.SIG SCH ×3 (05:49→21:38)
[2018-08-16 06:13] LABS: Mean Corpuscular HGB Conc 35.7 % (32.0-36.0); Mean Corpuscular Hemoglobin 33.1 pg (27.0-34.0); Mean Corpuscular Volume 92.7 fL (80.0-100.0); Mean Platelet Volume 8.3 fL (7.0-11.0); Platelet Count 20 th/mm3 (150-450); Red Blood Count 1.79 mil/mm3 (4.00-5.30); Red Cell Distribution Width 15.5 % (11.6-17.2); White Blood Count 0.5 th/mm3 (4.0-11.0)
[2018-08-16 06:20] LABS: Hematocrit 16.6 % (35.0-46.0); Hemoglobin 5.9 gm/dL (11.6-15.3)
[2018-08-16] MEDS ORDERED: Sodium Chloride 0.9% 2 ML Flush PRN IV.FLUSH (06:34)
[2018-08-16] MEDS: Acetaminophen 325 MG Tablet PO PRN ×2 (06:41→10:08)
[2018-08-16 06:45] LABS: Anion Gap 10 meq/L (5-15); Blood Urea Nitrogen 9 mg/dL (7-18); Carbon Dioxide 21.8 meq/L (21.0-32.0); Chloride 107 meq/L (98-107); Glomerular Filtration Rate Greater Than 89 mL/min (>89); Glucose,Random 109 mg/dL (74-106); Sodium 139 meq/L (136-145); Vancomycin,Trough 13.2 mcg/mL (5.0-10.0)
[2018-08-16] MEDS ORDERED: Sodium Chlor 0.9% Inj 250 ML IV.SIG SCH ×2 (07:00→09:00)
[2018-08-16 07:51] LABS: Eosinophils 3 % (0-4); Lymphocytes 97 % (9-44)
[2018-08-16 07:54] LABS: Platelet Morphology Normal (Normal)
--- NOTE | 2018-08-16 08:19 | P.PNONC ---
Subjective Interval history: Patient still feeling tired. She is afebrile since yesterday morning. She denies any headache or neck stiffness. She has no chest pain or shortness of breath. She still a mild sore throat but is better. She has no nausea vomiting. She denies abdominal pain. She denies any diarrhea. I have called Dr. Terry at [facility] but she has not returned my call. Objective Vital Signs/Intake & Output: Vital Signs 08/15/18 12:00 08/15/18 16:00 08/15/18 20:00 Temperature 97.9 F 98.1 F 98.4 F Pulse Rate 99 H 98 H 100 H Respiratory Rate 15 18 18 Blood Pressure 104/67 111/61 115/61 Pulse Oximetry 100 100 100 08/16/18 00:00 08/16/18 04:00 08/16/18 07:29 Temperature 98.7 F 98.1 F 98.3 F Pulse Rate 122 H 85 79 Respiratory Rate 18 18 18 Blood Pressure 110/65 111/54 L 89/53 L Pulse Oximetry 100 100 100 08/16/18 07:34 08/16/18 07:53 Temperature 98.3 F 98.1 F Pulse Rate 79 83 Respiratory Rate 18 17 Blood Pressure 89/53 L 100/52 L Pulse Oximetry 100 99 Intake & Output 08/15/18 08/16/18 08/16/18 18:59 06:59 18:59 Intake Total 2340 / 2340 840 / 840 0 / 0 Balance 2340 / 2340 840 / 840 0 / 0 Weight 63.8 kg Intake: IV 2100 / 2100 600 / 600 NS Inj 1,000 ML @ 70 mls/hr IV. 1750 / 1750 CONT .[id number] [facility] Rx#:[id number] Maxipime Inj 2,000 MG In NS Inj 100 / 100 100 / 100 100 ML @ 200 mls/hr IV.SIG Q8H [facility] Rx#:[id number] Vancomycin Inj 1,000 MG In NS 250 / 250 500 / 500 Inj 250 ML @ 250 mls/hr IV.SIG Q8H [facility] Rx#:[id number] Oral 240 / 240 240 / 240 Intake (Blood Product) Amt 0 / 0 Rbc As-3 Leukoreduced Unit 0 / 0 [id number] Other: # Voids 4 2 Date of Last Bowel Movement 08/15/18 08/15/18 # Bowel Movements 1 Result Diagrams: 08/16/18 05:45 08/16/18 05:45 Laboratory Results: Laboratory Results - last 24 hr 08/14/18 08/15/18 08/15/18 22:40 14:35 15:36 WBC 0.2 L RBC 1.99 L Hgb 6.6 L* Hct 18.5 L* MCV 92.9 MCH 33.4 MCHC 36.0 RDW 15.2 Plt Count 34 L D MPV 9.1 Prelim Diff (Auto) Slide review pending WBC Differential Manual diff final Lymphocytes % (Manual) 100 H Eosinophils % (Manual) Abs Neuts (Manual) Differential Comment . Platelet Estimate Low L Platelet Morphology Normal Ovalocytes 1+ H Sodium Potassium Chloride Carbon Dioxide Anion Gap BUN Creatinine Estimated GFR Random Glucose Calcium Iron 193 H TIBC 224 L % Saturation 86.2 H Ferritin 640 H Vancomycin Trough Blood Type Blood Type Recheck Antibody Screen MTS Gel Crossmatch See Detail 08/15/18 08/16/18 08/16/18 15:46 05:45 05:45 WBC 0.5 L D RBC 1.79 L Hgb 5.9 L* Hct 16.6 L* MCV 92.7 MCH 33.1 MCHC 35.7 RDW 15.5 Plt Count 20 L D MPV 8.3 Prelim Diff (Auto) Manual diff required WBC Differential Manual diff final Lymphocytes % (Manual) 97 H Eosinophils % (Manual) 3 Abs Neuts (Manual) Differential Comment . Platelet Estimate Low L Platelet Morphology Normal Ovalocytes Sodium 139 Potassium 3.0 L Chloride 107 D Carbon Dioxide 21.8 Anion Gap 10 BUN 9 Creatinine 0.46 L Estimated GFR Greater than 89 Random Glucose 109 H Calcium 8.0 L Iron TIBC % Saturation Ferritin Vancomycin Trough 13.2 H Blood Type O Positive Blood Type Recheck Not needed Antibody Screen Negative MTS Gel Crossmatch Culture Results: Microbiology 08/14/18 22:45 Aerobic Blood Culture - Preliminary Blood - Peripheral No growth in 1 day Anaerobic Blood Culture - Preliminary No growth in 1 day 08/14/18 22:40 Aerobic Blood Culture - Preliminary Blood - Peripheral No growth in 1 day Anaerobic Blood Culture - Preliminary No growth in 1 day Medications: Active Medications Generic Name Dose Route Start Last Admin Trade Name Freq PRN Reason Stop Dose Admin Acetaminophen 650 mg 08/16/18 06:30 08/16/18 06:41 Tylenol PO 650 mg Q4H PRN Administration SEE LABEL COMMENTS Dexamethasone Sodium Phosphate 4 mg 08/15/18 06:00 08/16/18 05:50 Decadron Inj IV.PUSH 4 mg Q6HR [facility] Administration Diphenhydramine HCl 25 mg 08/16/18 06:30 08/16/18 06:41 Benadryl PO 25 mg Q4H PRN Administration SEE LABEL COMMENTS Famotidine 10 mg 08/15/18 09:00 08/15/18 20:42 Pepcid PO 10 mg BID [facility] Administration Gabapentin 300 mg 08/15/18 09:00 08/15/18 17:44 Neurontin PO 300 mg TID [facility] Administration Cefepime HCl 2,000 mg/ Sodium 100 mls @ 200 mls/hr 08/15/18 07:15 08/15/18 23 :24 Chloride IV.SIG Infused Q8H [facility] Infusion Vancomycin HCl 1,000 mg/ 250 mls @ 250 mls/hr 08/15/18 14:00 08/16/18 06:49 Sodium Chloride IV.SIG Infused Q8H [facility] Infusion Ondansetron HCl 4 mg 08/15/18 01:13 08/15/18 09:20 Zofran Inj IV.PUSH 4 mg Q6H PRN Administration NAUSEA OR VOMITING Senna/Docusate Sodium 1 tab 08/15/18 09:00 08/15/18 20:42 Taylor-Colace PO 1 tab BID [facility] Administration Objective Remarks: GENERAL: Well-nourished, well-developed patient. Week. SKIN: Warm and dry. Pale. HEAD: Normocephalic. Alopecia. EYES: No scleral icterus. No injection or drainage. NECK: Supple, trachea midline. No JVD or lymphadenopathy. LYMPHATIC: No adenopathy. CARDIOVASCULAR: Regular rate and rhythm without murmurs. RESPIRATORY: Breath sounds equal bilaterally. No accessory muscle use. GASTROINTESTINAL: Abdomen soft, non-tender, nondistended. EXTREMITIES: No cyanosis, or edema. MUSCULOSKELETAL: Adequate muscle tone. Right leg in brace but no erythema or increased warmth. It is cutting machine tender decorative around the knee area. NEUROLOGICAL: No obvious focal deficit. Awake, alert, and oriented x3. PSYCHIATRIC: Appropriate mood and affect; insight and judgment normal. Assessment/Plan (1) Sepsis Code(s): A41.9 - Sepsis, unspecified organism Status: Acute (2) Neutropenia Code(s): D70.9 - Neutropenia, unspecified Status: Acute (3) Osteosarcoma Code(s): C41.9 - Malignant neoplasm of bone and articular cartilage, unspecified Status: Acute - Plan 1. Pancytopenia due to recent chemotherapy. It is unclear what regimen, the patient is receiving at [facility] and she is not able to tell me the name of the drug. It sounded like she has received her Neulasta injection after the chemotherapy. She now has febrile neutropenia. Urinalysis is unremarkable. Chest x-ray did not show any infiltrate. Culture is still pending. She was started on cefepime and vancomycin. August 16:. She is feeling a little better. She is afebrile for 24 hours. Culture negative to date. Hemoglobin trended down to 5.9 and platelet count down to 20,000. We will transfuse 2 units of packed red blood cells and 1 unit of platelets. Patient had received transfusion in the past without any problem. Continue antibiotics. Infectious disease is following. 2. Right knee osteosarcoma. She received neoadjuvant chemotherapy followed by surgical resection 06/2018. She is now back on adjuvant chemotherapy. She has been managed by Dr. Terry at [facility] group. The patient has been transferred back to [facility] each time she has any complication with chemotherapy. We will try to contact Dr. Terry's office to see if she wants the patient to be transferred over there. August 16:. I have called Dr. Terry's office yesterday and she is out of town. Dr. Coles was covering and I left a message to call me back and have not heard from them. 3. Hyponatremia due to dehydration. RECOMMENDATION: 1. Continue cefepime and vancomycin pending blood culture. 1. Transfuse 2 units of taylor-blood cell and 1 unit of platelet. 2. Continue neutropenic fever precaution. 3. Await call from Dr. Terry. 4. The patient has received Neulasta and she does not need Neupogen at this time.
[2018-08-16] MEDS: Sod Chloride 0.9% Inj 1,000 ML IV.CONT SCH (09:28)
[2018-08-16] MEDS: Sodium Chloride 0.9% 2 ML Flush BID IV.FLUSH SCH ×2 (09:36→21:41)
[2018-08-16] MEDS: Famotidine 20 MG Tablet PO SCH ×2 (10:55→21:40)
[2018-08-16] MEDS: Gabapentin 300 MG Capsule PO SCH ×3 (10:55→18:35)
[2018-08-16] MEDS: Senna/Docusate Sodium 8.6/50 MG Tablet PO SCH ×2 (10:56→21:40)
--- NOTE | 2018-08-16 11:04 | P.PN ---
Subjective Interval history: awake and alert, blunt affect no complains of pain + bowel movements- - not sure if diarrhea- no report of melena or hematochezia Physical Exam Vital signs: Vital Signs 08/15/18 12:00 08/15/18 16:00 08/15/18 20:00 Temperature 97.9 F 98.1 F 98.4 F Pulse Rate 99 H 98 H 100 H Respiratory Rate 15 18 18 Blood Pressure 104/67 111/61 115/61 Pulse Oximetry 100 100 100 08/16/18 00:00 08/16/18 04:00 08/16/18 07:11 Temperature 98.7 F 98.1 F Pulse Rate 122 H 85 Respiratory Rate 18 18 18 Blood Pressure 110/65 111/54 L Pulse Oximetry 100 100 08/16/18 07:29 08/16/18 07:34 08/16/18 07:53 Temperature 98.3 F 98.3 F 98.1 F Pulse Rate 79 79 83 Respiratory Rate 18 18 17 Blood Pressure 89/53 L 89/53 L 100/52 L Pulse Oximetry 100 100 99 08/16/18 08:00 08/16/18 10:20 08/16/18 10:21 Temperature 97.5 F L 97.6 F Pulse Rate 80 60 65 Respiratory Rate 18 18 Blood Pressure 103/59 L 108/57 L Pulse Oximetry 100 Intake & Output 08/15/18 08/16/18 08/16/18 18:59 06:59 18:59 Intake Total 2340 / 2340 840 / 840 430 / 430 Balance 2340 / 2340 840 / 840 430 / 430 Weight 63.8 kg Intake: IV 2100 / 2100 600 / 600 NS Inj 1,000 ML @ 70 mls/hr IV. 1750 / 1750 CONT .[id number] [facility] Rx#:[id number] Maxipime Inj 2,000 MG In NS Inj 100 / 100 100 / 100 100 ML @ 200 mls/hr IV.SIG Q8H [facility] Rx#:[id number] Vancomycin Inj 1,000 MG In NS 250 / 250 500 / 500 Inj 250 ML @ 250 mls/hr IV.SIG Q8H [facility] Rx#:[id number] Oral 240 / 240 240 / 240 Other 30 / 30 Rbc As-3 Leukoreduced Unit [id number] Intake (Blood Product) Amt 400 / 400 Rbc As-3 Leukoreduced Unit 0 / 0 [id number] Rbc As-3 Leukoreduced Unit 400 / 400 [id number] Other: Other Intake Source Rbc As-3 Leukoreduced Unit Saline Solution [id number] # Voids 4 2 Date of Last Bowel Movement 08/15/18 08/15/18 08/15/18 # Bowel Movements 1 Narrative: Gen.: no acute distress, blunt affect Head: Normocephalic. Atraumatic. EENT: Pupils equal round and reactive to light. Throat without injection. chest wall- port in place- no erythema Cardiovascular: Regular rate and rhythm. No murmurs, rubs or gallops. Respiratory: Lungs clear to auscultation bilaterally. No wheezes or rhonchi. Abdomen: Soft, nontender, nondistended. No peritoneal signs. Musculoskeletal: No gross deformities. No edema. Skin: No obvious rashes or erythema. Neuro: Sensory and motor grossly intact. Cranial nerves II through XII grossly intact. Results - Labs CBC & Chem 7: 08/16/18 05:45 08/16/18 05:45 Laboratory Results - last 24 hr 08/14/18 08/15/18 08/15/18 22:40 14:35 15:36 WBC 0.2 L RBC 1.99 L Hgb 6.6 L* Hct 18.5 L* MCV 92.9 MCH 33.4 MCHC 36.0 RDW 15.2 Plt Count 34 L D MPV 9.1 Prelim Diff (Auto) Slide review pending WBC Differential Manual diff final Lymphocytes % (Manual) 100 H Eosinophils % (Manual) Abs Neuts (Manual) Differential Comment . Platelet Estimate Low L Platelet Morphology Normal Ovalocytes 1+ H Sodium Potassium Chloride Carbon Dioxide Anion Gap BUN Creatinine Estimated GFR Random Glucose Calcium Iron 193 H TIBC 224 L % Saturation 86.2 H Ferritin 640 H Vancomycin Trough Blood Type Blood Type Recheck Antibody Screen MTS Gel Crossmatch See Detail Bld Prod Order Comment 08/15/18 08/16/18 08/16/18 15:46 05:45 05:45 WBC 0.5 L D RBC 1.79 L Hgb 5.9 L* Hct 16.6 L* MCV 92.7 MCH 33.1 MCHC 35.7 RDW 15.5 Plt Count 20 L D MPV 8.3 Prelim Diff (Auto) Manual diff required WBC Differential Manual diff final Lymphocytes % (Manual) 97 H Eosinophils % (Manual) 3 Abs Neuts (Manual) Differential Comment . Platelet Estimate Low L Platelet Morphology Normal Ovalocytes Sodium 139 Potassium 3.0 L Chloride 107 D Carbon Dioxide 21.8 Anion Gap 10 BUN 9 Creatinine 0.46 L Estimated GFR Greater than 89 Random Glucose 109 H Calcium 8.0 L Iron TIBC % Saturation Ferritin Vancomycin Trough 13.2 H Blood Type O Positive Blood Type Recheck Not needed Antibody Screen Negative MTS Gel Crossmatch Bld Prod Order Comment 08/16/18 08:14 WBC RBC Hgb Hct MCV MCH MCHC RDW Plt Count MPV Prelim Diff (Auto) WBC Differential Lymphocytes % (Manual) Eosinophils % (Manual) Abs Neuts (Manual) Differential Comment Platelet Estimate Platelet Morphology Ovalocytes Sodium Potassium Chloride Carbon Dioxide Anion Gap BUN Creatinine Estimated GFR Random Glucose Calcium Iron TIBC % Saturation Ferritin Vancomycin Trough Blood Type Blood Type Recheck Antibody Screen MTS Gel Crossmatch See Detail Bld Prod Order Comment Microbiology 08/14/18 22:45 Blood - Peripheral Aerobic Blood Culture - Preliminary No growth in 2 days 08/14/18 22:45 Blood - Peripheral Anaerobic Blood Culture - Preliminary No growth in 2 days 08/14/18 22:40 Blood - Peripheral Aerobic Blood Culture - Preliminary No growth in 2 days 08/14/18 22:40 Blood - Peripheral Anaerobic Blood Culture - Preliminary No growth in 2 days Assessment and Plan - Plan 23 years old female Pancytopenia due to recent chemotherapy Neutropenic fever Chest x-ray negative for acute process UA negative Blood cultures pending Oncology ff ID ff Vancomycin and cefepime for 2 units RBC + 1 unit platelet transfusion today received Neulasta- no need for Neupogen at this time History of right knee Osteosarcoma Oncology ff- Dr. Boyle trying to get hold of Oncologist in [facility]'s Continue steroids, oxycodone Hyponatremia - Na improve Hypokalemia K 3.0.- patient has a port - will give IV potassium Regular diet as tolerated Electrolytes: Monitor and replete as needed
[2018-08-16] MEDS ORDERED: Potassium Chloride Inj 30 MEQ in Sodium Chlor 0.9% Inj 100 ML IV.CONT ONE (13:00)
[2018-08-16] MEDS: KCL 20 mEq/D5W/NaCl 0.9% Inj 1,000 ML IV.CONT SCH (13:26)
[2018-08-16] MEDS: Aluminum/Magnesium/Simethacone Susp 30 ML UDC PO SCH ×2 (18:49→21:39)
[2018-08-16 20:57] LABS: Hematocrit 26.8 % (35.0-46.0); Hemoglobin 9.4 gm/dL (11.6-15.3)
--- NOTE | 2018-08-16 22:10 | P.PNID ---
Subjective Remarks: pt was seen earlier today pt is afebrile BC NGTD no new complaints Antibiotics: vancomycin cefepime Allergies/Adverse Reactions: Allergies No Known Allergies Allergy (Verified 07/04/18 16:38) Objective Vital Signs 08/16/18 00:00 08/16/18 04:00 08/16/18 07:11 Temperature 98.7 F 98.1 F Pulse Rate 122 H 85 Respiratory Rate 18 18 18 Blood Pressure 110/65 111/54 L Pulse Oximetry 100 100 08/16/18 07:29 08/16/18 07:34 08/16/18 07:53 Temperature 98.3 F 98.3 F 98.1 F Pulse Rate 79 79 83 Respiratory Rate 18 18 17 Blood Pressure 89/53 L 89/53 L 100/52 L Pulse Oximetry 100 100 99 08/16/18 08:00 08/16/18 10:20 08/16/18 10:21 Temperature 97.5 F L 97.6 F Pulse Rate 80 60 65 Respiratory Rate 18 18 Blood Pressure 103/59 L 108/57 L Pulse Oximetry 100 08/16/18 12:00 08/16/18 13:21 08/16/18 14:13 Temperature 97.8 F 97.9 F Pulse Rate 67 67 88 Respiratory Rate 18 18 Blood Pressure 113/58 L 95/58 L Pulse Oximetry 99 100 08/16/18 16:00 08/16/18 17:26 Temperature 98.0 F Pulse Rate 59 L 49 L Respiratory Rate 14 Blood Pressure 109/56 L Pulse Oximetry 100 Intake & Output 08/16/18 08/16/18 08/17/18 06:59 18:59 06:59 Intake Total 840 / 840 1385 / 1385 Balance 840 / 840 1385 / 1385 Weight 63.8 kg Intake: IV 600 / 600 525 / 525 KCl Inj 30 MEQ In NS Inj 100 ML 115 / 115 @ 38.333 mls/hr IV.CONT ONCE ONE Rx#:[id number] Maxipime Inj 2,000 MG In NS Inj 100 / 100 100 / 100 100 ML @ 200 mls/hr IV.SIG Q8H [facility] Rx#:[id number] NS Inj 250 ML @ 15 mls/hr IV. 60 / 60 SIG ONCE [facility] Rx#:[id number] Vancomycin Inj 1,000 MG In NS 500 / 500 250 / 250 Inj 250 ML @ 250 mls/hr IV.SIG Q8H [facility] Rx#:[id number] Oral 240 / 240 Other 60 / 60 Rbc As-3 Leukoreduced Unit [id number] Rbc As-3 Leukoreduced Unit [id number] Intake (Blood Product) Amt 800 / 800 Plt Pheresis B Leukoreduced 0 / 0 Unit [id number] Rbc As-3 Leukoreduced Unit 400 / 400 [id number] Rbc As-3 Leukoreduced Unit 400 / 400 [id number] Other: Other Intake Source Rbc As-3 Leukoreduced Unit Saline Solution [id number] Rbc As-3 Leukoreduced Unit Saline Solution [id number] # Voids 2 Date of Last Bowel Movement 08/15/18 08/15/18 08/14/18 22:45 Blood - Peripheral Aerobic Blood Culture - Preliminary No growth in 2 days 08/14/18 22:45 Blood - Peripheral Anaerobic Blood Culture - Preliminary No growth in 2 days 08/14/18 22:40 Blood - Peripheral Aerobic Blood Culture - Preliminary No growth in 2 days 08/14/18 22:40 Blood - Peripheral Anaerobic Blood Culture - Preliminary No growth in 2 days Lab - Hematology Results 08/14/18 08/15/18 08/16/18 22:40 14:35 05:45 WBC 0.4 L 0.2 L 0.5 L D RBC 2.59 L 1.99 L 1.79 L Hgb 8.4 L 6.6 L* 5.9 L* Hct 24.4 L 18.5 L* 16.6 L* MCV 94.4 92.9 92.7 MCH 32.3 33.4 33.1 MCHC 34.2 36.0 35.7 RDW 14.8 15.2 15.5 Plt Count 59 L 34 L D 20 L D MPV 9.0 9.1 8.3 Prelim Diff (Auto) Manual diff required Slide review pending Manual diff required WBC Differential Manual diff final Manual diff final Manual diff final Lymphocytes % (Manual) 90 H 100 H 97 H Eosinophils % (Manual) 3 Basophils % (Manual) 10 H Abs Neuts (Manual) Differential Comment . . . Platelet Estimate Low L Low L Low L Platelet Morphology Normal Normal Normal Ovalocytes 1+ H 08/16/18 20:28 WBC RBC Hgb 9.4 L D Hct 26.8 L MCV MCH MCHC RDW Plt Count MPV Prelim Diff (Auto) WBC Differential Lymphocytes % (Manual) Eosinophils % (Manual) Basophils % (Manual) Abs Neuts (Manual) Differential Comment Platelet Estimate Platelet Morphology Ovalocytes Lab - Chemistry Results 08/14/18 08/14/18 08/14/18 22:40 22:40 22:45 Sodium 133 L Potassium 3.6 Chloride 99 Carbon Dioxide 23.9 Anion Gap 10 BUN 16 Creatinine 0.76 Estimated GFR Greater than 89 Random Glucose 114 H Lactic Acid 1.4 Calcium 8.4 L Magnesium 1.5 Iron 193 H TIBC 224 L % Saturation 86.2 H Ferritin 640 H Total Bilirubin 0.7 AST 16 ALT 100 H Alkaline Phosphatase 57 Total Protein 6.9 Albumin 3.4 08/16/18 05:45 Sodium 139 Potassium 3.0 L Chloride 107 D Carbon Dioxide 21.8 Anion Gap 10 BUN 9 Creatinine 0.46 L Estimated GFR Greater than 89 Random Glucose 109 H Lactic Acid Calcium 8.0 L Magnesium Iron TIBC % Saturation Ferritin Total Bilirubin AST ALT Alkaline Phosphatase Total Protein Albumin Imaging: ITS Impressions Chest X-Ray 08/14/18 22:08 CONCLUSION: The lungs are clear. Physical Exam: GENERAL: NAD ill apearing SKIN: Warm and dry. HEAD: Atraumatic. Normocephalic. EYES: Pupils equal and round. No scleral icterus. No injection or drainage. ENT: No nasal bleeding or discharge. Mucous membranes pink and moist. NECK: Trachea midline. No JVD. CARDIOVASCULAR: Regular rate and rhythm. RESPIRATORY: No accessory muscle use. Clear to auscultation. Breath sounds equal bilaterally. GASTROINTESTINAL: Abdomen soft, non-tender, nondistended. MUSCULOSKELETAL: Extremities without clubbing, cyanosis, or edema. No obvious deformities. well healed scar NEUROLOGICAL: Awake and alert. No obvious cranial nerve deficits. Motor grossly within normal limits. Five out of 5 muscle strength in the arms and legs. Normal speech. PSYCHIATRIC: Appropriate mood and affect; insight and judgment normal. LINE: Assessment and Plan - Plan R knee osteosarcoma sp chemo Neutropenic fever, non localizing fever resolved with current abx choice cont cefepime and vancomycin fu culture untill final fu ANC fu clinically dw sister @ b/s
[2018-08-17] MEDS: Vancomycin Inj 1,000 MG in Sodium Chlor 0.9% Inj 250 ML IV.SIG SCH ×3 (05:06→21:03)
[2018-08-17 07:09] LABS: Eos % (Auto) 0.3 % (0.0-4.0); Hematocrit 24.5 % (35.0-46.0); Hemoglobin 8.7 gm/dL (11.6-15.3); Lymph # (Auto) 0.6 th/mm3 (1.0-4.8); Lymph % (Auto) 94.4 % (9.0-44.0); Mean Corpuscular HGB Conc 35.5 % (32.0-36.0); Mean Corpuscular Hemoglobin 32.4 pg (27.0-34.0); Mean Corpuscular Volume 91.3 fL (80.0-100.0); Mean Platelet Volume 8.6 fL (7.0-11.0); Mono % (Auto) 3.7 % (0.0-8.0); Neut % (Auto) 1.6 % (16.0-70.0); Platelet Count 28 th/mm3 (150-450); Red Blood Count 2.68 mil/mm3 (4.00-5.30); Red Cell Distribution Width 16.4 % (11.6-17.2); White Blood Count 0.7 th/mm3 (4.0-11.0)
[2018-08-17 07:28] LABS: Anion Gap 7 meq/L (5-15); Blood Urea Nitrogen 15 mg/dL (7-18); Calcium 8.1 mg/dL (8.5-10.1); Chloride 109 meq/L (98-107); Glomerular Filtration Rate Greater Than 89 mL/min (>89); Glucose,Random 127 mg/dL (74-106); Potassium 4.1 meq/L (3.5-5.1); Sodium 140 meq/L (136-145)
[2018-08-17] MEDS: Famotidine 20 MG Tablet PO SCH ×2 (08:12→21:02)
[2018-08-17] MEDS: Aluminum/Magnesium/Simethacone Susp 30 ML UDC PO SCH ×4 (08:12→21:02)
[2018-08-17] MEDS: Gabapentin 300 MG Capsule PO SCH ×3 (08:12→17:15)
[2018-08-17] MEDS: Sodium Chloride 0.9% 2 ML Flush BID IV.FLUSH SCH ×2 (08:13→21:03)
[2018-08-17] MEDS: Senna/Docusate Sodium 8.6/50 MG Tablet PO SCH ×2 (08:14→21:02)
[2018-08-17 09:03] LABS: Lymphocytes 94 % (9-44); Monocytes 4 % (0-8); Platelet Morphology Normal (Normal)
--- NOTE | 2018-08-17 09:37 | P.PN ---
Subjective Interval history: T down blunt affect no complains listening to music with headphones on Physical Exam Vital signs: Vital Signs 08/16/18 10:20 08/16/18 10:21 08/16/18 12:00 Temperature 97.5 F L 97.6 F 97.8 F Pulse Rate 60 65 67 Respiratory Rate 18 18 18 Blood Pressure 103/59 L 108/57 L 113/58 L Pulse Oximetry 100 99 08/16/18 13:21 08/16/18 14:13 08/16/18 16:00 Temperature 97.9 F 98.0 F Pulse Rate 67 88 59 L Respiratory Rate 18 14 Blood Pressure 95/58 L 109/56 L Pulse Oximetry 100 100 08/16/18 17:26 08/16/18 20:00 08/17/18 00:00 Temperature 98.2 F 98.2 F Pulse Rate 49 L 59 L 57 L Respiratory Rate 18 18 Blood Pressure 120/67 114/76 Pulse Oximetry 100 100 08/17/18 04:00 08/17/18 08:00 Temperature 98.0 F 97.8 F Pulse Rate 59 L 51 L Respiratory Rate 18 16 Blood Pressure 109/61 107/57 L Pulse Oximetry 98 98 Intake & Output 08/16/18 08/17/18 08/17/18 18:59 06:59 18:59 Intake Total 1385 / 1385 820 / 820 Balance 1385 / 1385 820 / 820 Weight 65.2 kg Intake: IV 525 / 525 600 / 600 KCl Inj 30 MEQ In NS Inj 100 ML 115 / 115 @ 38.333 mls/hr IV.CONT ONCE ONE Rx#:[id number] Maxipime Inj 2,000 MG In NS Inj 100 / 100 100 / 100 100 ML @ 200 mls/hr IV.SIG Q8H [facility] Rx#:[id number] NS Inj 250 ML @ 15 mls/hr IV. 60 / 60 SIG ONCE [facility] Rx#:[id number] Vancomycin Inj 1,000 MG In NS 250 / 250 500 / 500 Inj 250 ML @ 250 mls/hr IV.SIG Q8H [facility] Rx#:[id number] Oral 220 / 220 Other 60 / 60 Rbc As-3 Leukoreduced Unit 30 / 30 [id number] Rbc As-3 Leukoreduced Unit 30 / 30 [id number] Intake (Blood Product) Amt 800 / 800 Plt Pheresis B Leukoreduced 0 / 0 Unit [id number] Rbc As-3 Leukoreduced Unit 400 / 400 [id number] Rbc As-3 Leukoreduced Unit 400 / 400 [id number] Other: Other Intake Source Rbc As-3 Leukoreduced Unit Saline Solution [id number] Rbc As-3 Leukoreduced Unit Saline Solution [id number] # Voids 2 # Urine Diapers 3 Date of Last Bowel Movement 08/15/18 08/16/18 Narrative: Gen.: no acute distress, blunt affect, speech celar EENT: Pupils equal round and reactive to light. Throat without injection. no thrush chest wall- port in place- no erythema Cardiovascular: Regular rate and rhythm. No murmurs, rubs or gallops. Respiratory: Lungs clear to auscultation bilaterally. No wheezes or rhonchi. Abdomen: Soft, nontender, nondistended. No peritoneal signs. Musculoskeletal: No gross deformities. No edema. LE- with brace in place Skin: No obvious rashes or erythema. Neuro: Sensory and motor grossly intact. Cranial nerves II through XII grossly intact. Results - Labs CBC & Chem 7: 08/18/18 05:54 08/18/18 05:54 Laboratory Results - last 24 hr 08/15/18 08/16/18 08/16/18 15:36 08:14 20:28 WBC RBC Hgb 9.4 L D Hct 26.8 L MCV MCH MCHC RDW Plt Count MPV Prelim Diff (Auto) Neut % (Auto) Lymph % (Auto) [place] % (Auto) Eos % (Auto) Baso % (Auto) Neut # (Auto) Lymph # (Auto) [place] # (Auto) Eos # (Auto) Baso # (Auto) WBC Differential Seg Neuts % (Manual) Band Neuts % (Manual) Lymphocytes % (Manual) Monocytes % (Manual) Abs Neuts (Manual) Differential Comment Platelet Estimate Platelet Morphology Sodium Potassium Chloride Carbon Dioxide Anion Gap BUN Creatinine Estimated GFR Random Glucose Calcium MTS Gel Crossmatch See Detail See Detail Bld Prod Order Comment 08/17/18 08/17/18 05:40 05:40 WBC 0.7 L RBC 2.68 L Hgb 8.7 L Hct 24.5 L MCV 91.3 MCH 32.4 MCHC 35.5 RDW 16.4 Plt Count 28 L D MPV 8.6 Prelim Diff (Auto) Slide review pending Neut % (Auto) 1.6 L Lymph % (Auto) 94.4 H [place] % (Auto) 3.7 Eos % (Auto) 0.3 Baso % (Auto) 0.0 Neut # (Auto) 0.0 L* Lymph # (Auto) 0.6 L [place] # (Auto) 0.0 Eos # (Auto) 0.0 Baso # (Auto) 0.0 WBC Differential Manual diff final Seg Neuts % (Manual) 1 L Band Neuts % (Manual) 1 Lymphocytes % (Manual) 94 H Monocytes % (Manual) 4 Abs Neuts (Manual) 0.0 L* Differential Comment . Platelet Estimate Low L Platelet Morphology Normal Sodium 140 Potassium 4.1 D Chloride 109 H Carbon Dioxide 24.0 Anion Gap 7 BUN 15 Creatinine 0.53 Estimated GFR Greater than 89 Random Glucose 127 H Calcium 8.1 L MTS Gel Crossmatch Bld Prod Order Comment Microbiology 08/14/18 22:45 Blood - Peripheral Aerobic Blood Culture - Preliminary No growth in 2 days 08/14/18 22:45 Blood - Peripheral Anaerobic Blood Culture - Preliminary No growth in 2 days 08/14/18 22:40 Blood - Peripheral Aerobic Blood Culture - Preliminary No growth in 2 days 08/14/18 22:40 Blood - Peripheral Anaerobic Blood Culture - Preliminary No growth in 2 days Assessment and Plan - Plan 23 years old female Pancytopenia due to recent chemotherapy Neutropenic fever- WBC and H and H - up. ANC 0 Chest x-ray negative for acute process UA negative Blood cultures from 08/14 -no growth to date ID ff Vancomycin and cefepime S/P for 2 units RBC + 1 unit platelet 08/16 received Neulasta- Hematology ff History of right knee Osteosarcoma Oncology ff- Dr. Boyle trying to get hold of Oncologist in Continue steroids, oxycodone Hyponatremia - Na improve Hypokalemia - corrected K 4.0 Regular diet as tolerated Electrolytes: Monitor and replete as needed
[2018-08-17] MEDS: KCL 20 mEq/D5W/NaCl 0.9% Inj 1,000 ML IV.CONT SCH (11:24)
--- NOTE | 2018-08-17 11:47 | P.PNONC ---
Subjective Interval history: Patient is remained afebrile since admission She continues on cefepime and vancomycin No bleeding Pending transfer to oncology Objective Vital Signs/Intake & Output: Vital Signs 08/16/18 12:00 08/16/18 13:21 08/16/18 14:13 Temperature 97.8 F 97.9 F Pulse Rate 67 67 88 Respiratory Rate 18 18 Blood Pressure 113/58 L 95/58 L Pulse Oximetry 99 100 08/16/18 16:00 08/16/18 17:26 08/16/18 20:00 Temperature 98.0 F 98.2 F Pulse Rate 59 L 49 L 59 L Respiratory Rate 14 18 Blood Pressure 109/56 L 120/67 Pulse Oximetry 100 100 08/17/18 00:00 08/17/18 04:00 08/17/18 08:00 Temperature 98.2 F 98.0 F 97.8 F Pulse Rate 57 L 59 L 51 L Respiratory Rate 18 18 16 Blood Pressure 114/76 109/61 107/57 L Pulse Oximetry 100 98 98 Intake & Output 08/16/18 08/17/18 08/17/18 18:59 06:59 18:59 Intake Total 1385 / 1385 820 / 820 1100 / 1100 Balance 1385 / 1385 820 / 820 1100 / 1100 Weight 143 lb 11.862 oz Intake: IV 525 / 525 600 / 600 1100 / 1100 D5W/NS + KCL 20 mEq Inj 1,000 1000 / 1000 ML @ 42 mls/hr IV.CONT .[id number] [facility] Rx#:[id number] KCl Inj 30 MEQ In NS Inj 100 ML 115 / 115 @ 38.333 mls/hr IV.CONT ONCE ONE Rx#:[id number] Maxipime Inj 2,000 MG In NS Inj 100 / 100 100 / 100 100 / 100 100 ML @ 200 mls/hr IV.SIG Q8H [facility] Rx#:[id number] NS Inj 250 ML @ 15 mls/hr IV. 60 / 60 SIG ONCE [facility] Rx#:[id number] Vancomycin Inj 1,000 MG In NS 250 / 250 500 / 500 Inj 250 ML @ 250 mls/hr IV.SIG Q8H [facility] Rx#:[id number] Oral 220 / 220 Other 60 / 60 Rbc As-3 Leukoreduced Unit 30 / 30 [id number] Rbc As-3 Leukoreduced Unit 30 / 30 [id number] Intake (Blood Product) Amt 800 / 800 Plt Pheresis B Leukoreduced 0 / 0 Unit [id number] Rbc As-3 Leukoreduced Unit 400 / 400 [id number] Rbc As-3 Leukoreduced Unit 400 / 400 [id number] Other: Other Intake Source Rbc As-3 Leukoreduced Unit Saline Solution [id number] Rbc As-3 Leukoreduced Unit Saline Solution [id number] # Voids 2 # Urine Diapers 3 Date of Last Bowel Movement 08/15/18 08/16/18 Result Diagrams: 08/17/18 05:40 08/17/18 05:40 Laboratory Results: Laboratory Results - last 24 hr 08/16/18 08/16/18 08/17/18 08:14 20:28 05:40 WBC 0.7 L RBC 2.68 L Hgb 9.4 L D 8.7 L Hct 26.8 L 24.5 L MCV 91.3 MCH 32.4 MCHC 35.5 RDW 16.4 Plt Count 28 L D MPV 8.6 Prelim Diff (Auto) Slide review pending Neut % (Auto) 1.6 L Lymph % (Auto) 94.4 H [place] % (Auto) 3.7 Eos % (Auto) 0.3 Baso % (Auto) 0.0 Neut # (Auto) 0.0 L* Lymph # (Auto) 0.6 L [place] # (Auto) 0.0 Eos # (Auto) 0.0 Baso # (Auto) 0.0 WBC Differential Manual diff final Seg Neuts % (Manual) 1 L Band Neuts % (Manual) 1 Lymphocytes % (Manual) 94 H Monocytes % (Manual) 4 Abs Neuts (Manual) 0.0 L* Differential Comment . Platelet Estimate Low L Platelet Morphology Normal Sodium Potassium Chloride Carbon Dioxide Anion Gap BUN Creatinine Estimated GFR Random Glucose Calcium MTS Gel Crossmatch See Detail Bld Prod Order Comment 08/17/18 05:40 WBC RBC Hgb Hct MCV MCH MCHC RDW Plt Count MPV Prelim Diff (Auto) Neut % (Auto) Lymph % (Auto) [place] % (Auto) Eos % (Auto) Baso % (Auto) Neut # (Auto) Lymph # (Auto) [place] # (Auto) Eos # (Auto) Baso # (Auto) WBC Differential Seg Neuts % (Manual) Band Neuts % (Manual) Lymphocytes % (Manual) Monocytes % (Manual) Abs Neuts (Manual) Differential Comment Platelet Estimate Platelet Morphology Sodium 140 Potassium 4.1 D Chloride 109 H Carbon Dioxide 24.0 Anion Gap 7 BUN 15 Creatinine 0.53 Estimated GFR Greater than 89 Random Glucose 127 H Calcium 8.1 L MTS Gel Crossmatch Bld Prod Order Comment Culture Results: Microbiology 08/14/18 22:45 Aerobic Blood Culture - Preliminary Blood - Peripheral No growth in 3 days Anaerobic Blood Culture - Preliminary No growth in 3 days 08/14/18 22:40 Aerobic Blood Culture - Preliminary Blood - Peripheral No growth in 3 days Anaerobic Blood Culture - Preliminary No growth in 3 days Medications: Active Medications Generic Name Dose Route Start Last Admin Trade Name Freq PRN Reason Stop Dose Admin Al Hydrox/Mg Hydrox/Simethicone 30 ml 08/16/18 19:00 08/17/18 08:12 Mag-Al Plus Susp Liq PO 30 ml QID [facility] Administration Dexamethasone Sodium Phosphate 4 mg 08/15/18 06:00 08/17/18 11:24 Decadron Inj IV.PUSH 4 mg Q6HR [facility] Administration Diphenhydramine HCl 25 mg 08/16/18 06:30 08/16/18 06:41 Benadryl PO 25 mg Q4H PRN Administration SEE LABEL COMMENTS Famotidine 10 mg 08/15/18 09:00 08/17/18 08:12 Pepcid PO 10 mg BID [facility] Administration Gabapentin 300 mg 08/15/18 09:00 08/17/18 08:12 Neurontin PO 300 mg TID [facility] Administration Cefepime HCl 2,000 mg/ Sodium 100 mls @ 200 mls/hr 08/15/18 07:15 08/17/18 08 :45 Chloride IV.SIG Infused Q8H [facility] Infusion Vancomycin HCl 1,000 mg/ 250 mls @ 250 mls/hr 08/15/18 14:00 08/17/18 06:13 Sodium Chloride IV.SIG Infused Q8H [facility] Infusion Potassium Chloride/Dextrose/Sod Cl 1,000 mls @ 42 mls/hr 08/16/18 11:30 08/17 11:24 D5w/Ns + Kcl 20 Meq Inj IV.CONT 42 mls/hr .[id number] [facility] Administration Ondansetron HCl 4 mg 08/15/18 01:13 08/15/18 09:20 Zofran Inj IV.PUSH 4 mg Q6H PRN Administration NAUSEA OR VOMITING Senna/Docusate Sodium 1 tab 08/15/18 09:00 08/17/18 08:14 Gege-Colace PO Not Given BID [facility] Sodium Chloride 2 ml 08/16/18 09:00 08/17/18 08:13 Ns Flush IV.FLUSH 2 ml BID [facility] Administration Objective Remarks: GENERAL: Young fatigued appearing female resting in bed in no acute distress SKIN: Warm and dry. Pale. HEAD: Normocephalic. Alopecia. EYES: No scleral icterus. No injection or drainage. NECK: Supple, trachea midline. CARDIOVASCULAR: Regular rate and rhythm without murmurs. RESPIRATORY: Breath sounds equal bilaterally. No accessory muscle use. GASTROINTESTINAL: Abdomen soft, non-tender, nondistended. EXTREMITIES: No cyanosis, or edema. Right leg in brace but no erythema or increased warmth. It is photographer still around the knee area. MUSCULOSKELETAL: Adequate muscle tone. NEUROLOGICAL: No obvious focal deficit. Awake, alert, and oriented x3. Assessment/Plan (1) Sepsis Code(s): A41.9 - Sepsis, unspecified organism Status: Acute (2) Neutropenia Code(s): D70.9 - Neutropenia, unspecified Status: Acute (3) Osteosarcoma Code(s): C41.9 - Malignant neoplasm of bone and articular cartilage, unspecified Status: Acute - Plan 1. Patient has pancytopenia due to recent chemotherapy. She has apparently received Neulasta after her most recent treatment. She was admitted with fever. She is currently receiving cefepime and vancomycin. Her urinalysis, chest x-ray are negative. Blood cultures show no growth. 2. Patient had 2 units packed red blood cells and 1 unit platelets on August 16. 3. The patient is being followed by Dr. Terry at [facility] pediatric oncology for her right knee osteosarcoma. She had surgical resection in June 2018 and is now back on adjuvant chemotherapy. Once she is recovered from the neutropenic fever she will be discharged and follow-up with Dr. Terry for further treatment. 4. Transfer patient to oncology floor. Continue supportive care. - Attending Statement The exam, history, and the medical decision-making described in the above note were completed with the assistance of the mid-level provider. I reviewed and agree with the findings presented. I attest that I had a [id number] encounter with the patient on the same day, and personally performed and documented my assessment and findings in the medical record. 23 yoF with osteosarcoma currently receiving treatment under the direction of Dr. Terry at [facility]. Admitted with neutropenic fever. She continues on broad spectrum antibiotics. Continue to ofllow counts.
[2018-08-18] MEDS: Vancomycin Inj 1,000 MG in Sodium Chlor 0.9% Inj 250 ML IV.SIG SCH ×3 (05:32→21:04)
[2018-08-18] MEDS ORDERED: Pharmacy Ordered Lab Info OTHER ONE (05:45)
[2018-08-18 06:34] LABS: Baso % (Auto) 0.2 % (0.0-2.0); Eos % (Auto) 0.4 % (0.0-4.0); Hematocrit 23.6 % (35.0-46.0); Hemoglobin 8.4 gm/dL (11.6-15.3); Lymph # (Auto) 0.8 th/mm3 (1.0-4.8); Lymph % (Auto) 82.9 % (9.0-44.0); Mean Corpuscular HGB Conc 35.6 % (32.0-36.0); Mean Corpuscular Hemoglobin 32.4 pg (27.0-34.0); Mean Platelet Volume 7.9 fL (7.0-11.0); Mono # (Auto) 0.1 th/mm3 (0.0-0.9); Mono % (Auto) 9.2 % (0.0-8.0); Neut # (Auto) 0.1 th/mm3 (1.8-7.7); Neut % (Auto) 7.3 % (16.0-70.0); Red Cell Distribution Width 15.3 % (11.6-17.2); White Blood Count 0.9 th/mm3 (4.0-11.0)
[2018-08-18 06:50] LABS: Platelet Count 13 th/mm3 (150-450)
[2018-08-18 06:57] LABS: Albumin 2.7 g/dL (3.4-5.0); Anion Gap 8 meq/L (5-15); Aspartate Aminotransferase 7 U/L (15-37); Blood Urea Nitrogen 12 mg/dL (7-18); Calcium 8.4 mg/dL (8.5-10.1); Carbon Dioxide 21.8 meq/L (21.0-32.0); Chloride 109 meq/L (98-107); Glomerular Filtration Rate Greater Than 89 mL/min (>89); Glucose,Random 116 mg/dL (74-106); Potassium 4.3 meq/L (3.5-5.1); Sodium 139 meq/L (136-145)
[2018-08-18 06:59] LABS: Alanine Aminotransferase 38 U/L (10-53); Alkaline Phosphatase 42 U/L (45-117); Total Protein 6.2 g/dL (6.4-8.2); Vancomycin,Trough 14.1 mcg/mL (5.0-10.0)
[2018-08-18] MEDS ORDERED: Acetaminophen 325 MG Tablet PO PRN (09:00)
[2018-08-18] MEDS ORDERED: Sodium Chlor 0.9% Inj 250 ML IV.SIG SCH (09:00)
[2018-08-18] MEDS: Famotidine 20 MG Tablet PO SCH ×2 (09:21→21:03)
[2018-08-18] MEDS: Senna/Docusate Sodium 8.6/50 MG Tablet PO SCH ×2 (09:22→21:03)
[2018-08-18] MEDS: Gabapentin 300 MG Capsule PO SCH ×3 (09:22→17:19)
--- NOTE | 2018-08-18 09:39 | P.PNIM ---
Subjective Interval history: The patient was resting in bed. She had no acute complaints. Her family was also in the room. Discussed with nursing. Physical Exam Vital signs: Vital Signs 08/17/18 12:00 08/17/18 15:48 08/17/18 15:57 Temperature 97.7 F 98.1 F Pulse Rate 79 64 58 L Respiratory Rate 16 16 Blood Pressure 112/59 L 111/72 Pulse Oximetry 94 L 98 08/17/18 20:00 08/18/18 00:00 08/18/18 04:00 Temperature 98.2 F 98.4 F 97.9 F Pulse Rate 59 L 63 52 L Respiratory Rate 16 15 16 Blood Pressure 119/71 112/74 99/52 L Pulse Oximetry 100 100 100 08/18/18 07:13 Temperature 97.8 F Pulse Rate 46 L Respiratory Rate 16 Blood Pressure 111/69 Pulse Oximetry 100 Intake & Output 08/17/18 08/18/18 08/18/18 18:59 06:59 18:59 Intake Total 1690 / 1690 1080 / 1080 Output Total 1400 / 1400 Balance 1690 / 1690 -320 / -320 Intake: IV 1450 / 1450 600 / 600 D5W/NS + KCL 20 mEq Inj 1,000 1000 / 1000 ML @ 42 mls/hr IV.CONT .[id number] NEGRITA Rx#:[id number] Maxipime Inj 2,000 MG In NS Inj 200 / 200 100 / 100 100 ML @ 200 mls/hr IV.SIG Q8H NEGRITA Rx#:[id number] Vancomycin Inj 1,000 MG In NS 250 / 250 500 / 500 Inj 250 ML @ 250 mls/hr IV.SIG Q8H NEGRITA Rx#:[id number] Oral 240 / 240 480 / 480 Output: Urine 1400 / 1400 Other: Date of Last Bowel Movement 08/16/18 Narrative: Gen: no acute distress. HEENT: Pupils equal round and reactive to light. Throat without injection. Cardiovascular: Regular rate and rhythm. No murmurs, rubs or gallops. Respiratory: Lungs clear to auscultation bilaterally. No wheezes or rhonchi. Abdomen: Soft, nontender, nondistended. No peritoneal signs. Musculoskeletal: No gross deformities. No edema. LE- with brace in place. Skin: No obvious rashes or erythema. Port in place. Neuro: Sensory and motor grossly intact. Cranial nerves II through XII grossly intact. Results - Labs CBC & Chem 7: 08/18/18 05:54 08/18/18 05:54 Laboratory Results - last 24 hr 08/15/18 08/16/18 08/18/18 15:36 08:14 05:54 WBC RBC Hgb Hct MCV MCH MCHC RDW Plt Count MPV Prelim Diff (Auto) Neut % (Auto) Lymph % (Auto) [place] % (Auto) Eos % (Auto) Baso % (Auto) Neut # (Auto) Lymph # (Auto) [place] # (Auto) Eos # (Auto) Baso # (Auto) Differential Comment Sodium 139 Potassium 4.3 Chloride 109 H Carbon Dioxide 21.8 Anion Gap 8 BUN 12 Creatinine 0.49 L Estimated GFR Greater than 89 Random Glucose 116 H Calcium 8.4 L Total Bilirubin 0.4 AST 7 L ALT 38 Alkaline Phosphatase 42 L Total Protein 6.2 L D Albumin 2.7 L Vancomycin Trough 14.1 H MTS Gel Crossmatch See Detail See Detail Bld Prod Order Comment 08/18/18 08/18/18 05:54 08:33 WBC 0.9 L RBC 2.60 L Hgb 8.4 L Hct 23.6 L MCV 91.0 MCH 32.4 MCHC 35.6 RDW 15.3 Plt Count 13 L* D MPV 7.9 Prelim Diff (Auto) Slide review pending Neut % (Auto) 7.3 L Lymph % (Auto) 82.9 H [place] % (Auto) 9.2 H Eos % (Auto) 0.4 Baso % (Auto) 0.2 Neut # (Auto) 0.1 L* Lymph # (Auto) 0.8 L [place] # (Auto) 0.1 Eos # (Auto) 0.0 Baso # (Auto) 0.0 Differential Comment . Sodium Potassium Chloride Carbon Dioxide Anion Gap BUN Creatinine Estimated GFR Random Glucose Calcium Total Bilirubin AST ALT Alkaline Phosphatase Total Protein Albumin Vancomycin Trough MTS Gel Crossmatch Bld Prod Order Comment Microbiology 08/14/18 22:45 Blood - Peripheral Aerobic Blood Culture - Preliminary No growth in 3 days 08/14/18 22:45 Blood - Peripheral Anaerobic Blood Culture - Preliminary No growth in 3 days 08/14/18 22:40 Blood - Peripheral Aerobic Blood Culture - Preliminary No growth in 3 days 08/14/18 22:40 Blood - Peripheral Anaerobic Blood Culture - Preliminary No growth in 3 days Assessment and Plan - Plan Pancytopenia due to recent chemotherapy/Neutropenic fever Chest x-ray negative for acute process. UA negative. Blood cultures no growth to date. ID consult appreciated. -Vancomycin and cefepime per ID. -S/P for 2 units RBC + 2 unit platelets. -08/16 received Neulasta. -Hematology following. -follow cultures until final. -neutropenic precautions. -D5NS. 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 Oncology consult appreciated. -pain control as needed. -d/c steroids. -follow-up at [facility] upon discharge. PPx: Chemical prophylaxis contraindicated secondary to anemia Discharge Planning: Await ID and oncology clearance
[2018-08-18 09:53] LABS: Lymphocytes 90 % (9-44); Monocytes 7 % (0-8)
--- NOTE | 2018-08-18 09:53 | P.PNONC ---
Subjective Interval history: Afebrile Patient resting in bed Feels "so-so" Denies bleeding Objective Vital Signs/Intake & Output: Vital Signs 08/17/18 12:00 08/17/18 15:48 08/17/18 15:57 Temperature 97.7 F 98.1 F Pulse Rate 79 64 58 L Respiratory Rate 16 16 Blood Pressure 112/59 L 111/72 Pulse Oximetry 94 L 98 08/17/18 20:00 08/18/18 00:00 08/18/18 04:00 Temperature 98.2 F 98.4 F 97.9 F Pulse Rate 59 L 63 52 L Respiratory Rate 16 15 16 Blood Pressure 119/71 112/74 99/52 L Pulse Oximetry 100 100 100 08/18/18 07:13 Temperature 97.8 F Pulse Rate 46 L Respiratory Rate 16 Blood Pressure 111/69 Pulse Oximetry 100 Intake & Output 08/17/18 08/18/18 08/18/18 18:59 06:59 18:59 Intake Total 1690 / 1690 1080 / 1080 Output Total 1400 / 1400 Balance 1690 / 1690 -320 / -320 Intake: IV 1450 / 1450 600 / 600 D5W/NS + KCL 20 mEq Inj 1,000 1000 / 1000 ML @ 42 mls/hr IV.CONT .[id number] NEGRITA Rx#:[id number] Maxipime Inj 2,000 MG In NS Inj 200 / 200 100 / 100 100 ML @ 200 mls/hr IV.SIG Q8H NEGRITA Rx#:[id number] Vancomycin Inj 1,000 MG In NS 250 / 250 500 / 500 Inj 250 ML @ 250 mls/hr IV.SIG Q8H NEGRITA Rx#:[id number] Oral 240 / 240 480 / 480 Output: Urine 1400 / 1400 Other: Date of Last Bowel Movement 08/16/18 Result Diagrams: 08/18/18 05:54 08/18/18 05:54 Laboratory Results: Laboratory Results - last 24 hr 08/15/18 08/16/18 08/18/18 15:36 08:14 05:54 WBC RBC Hgb Hct MCV MCH MCHC RDW Plt Count MPV Prelim Diff (Auto) Neut % (Auto) Lymph % (Auto) [place] % (Auto) Eos % (Auto) Baso % (Auto) Neut # (Auto) Lymph # (Auto) [place] # (Auto) Eos # (Auto) Baso # (Auto) Differential Comment Sodium 139 Potassium 4.3 Chloride 109 H Carbon Dioxide 21.8 Anion Gap 8 BUN 12 Creatinine 0.49 L Estimated GFR Greater than 89 Random Glucose 116 H Calcium 8.4 L Total Bilirubin 0.4 AST 7 L ALT 38 Alkaline Phosphatase 42 L Total Protein 6.2 L D Albumin 2.7 L Vancomycin Trough 14.1 H MTS Gel Crossmatch See Detail See Detail Bld Prod Order Comment 08/18/18 08/18/18 05:54 08:33 WBC 0.9 L RBC 2.60 L Hgb 8.4 L Hct 23.6 L MCV 91.0 MCH 32.4 MCHC 35.6 RDW 15.3 Plt Count 13 L* D MPV 7.9 Prelim Diff (Auto) Slide review pending Neut % (Auto) 7.3 L Lymph % (Auto) 82.9 H [place] % (Auto) 9.2 H Eos % (Auto) 0.4 Baso % (Auto) 0.2 Neut # (Auto) 0.1 L* Lymph # (Auto) 0.8 L [place] # (Auto) 0.1 Eos # (Auto) 0.0 Baso # (Auto) 0.0 Differential Comment . Sodium Potassium Chloride Carbon Dioxide Anion Gap BUN Creatinine Estimated GFR Random Glucose Calcium Total Bilirubin AST ALT Alkaline Phosphatase Total Protein Albumin Vancomycin Trough MTS Gel Crossmatch Bld Prod Order Comment Culture Results: Microbiology 08/14/18 22:45 Aerobic Blood Culture - Preliminary Blood - Peripheral No growth in 3 days Anaerobic Blood Culture - Preliminary No growth in 3 days 08/14/18 22:40 Aerobic Blood Culture - Preliminary Blood - Peripheral No growth in 3 days Anaerobic Blood Culture - Preliminary No growth in 3 days Medications: Active Medications Generic Name Dose Route Start Last Admin Trade Name Freq PRN Reason Stop Dose Admin Al Hydrox/Mg Hydrox/Simethicone 30 ml 08/16/18 19:00 08/17/18 21:02 Mag-Al Plus Susp Liq PO 30 ml QID NEGRITA Administration Famotidine 10 mg 08/15/18 09:00 08/18/18 09:21 Pepcid PO 10 mg BID NEGRITA Administration Gabapentin 300 mg 08/15/18 09:00 08/18/18 09:22 Neurontin PO 300 mg TID NEGRITA Administration Cefepime HCl 2,000 mg/ Sodium 100 mls @ 200 mls/hr 08/15/18 07:15 08/18/18 00 :22 Chloride IV.SIG Infused Q8H NEGRITA Infusion Vancomycin HCl 1,000 mg/ 250 mls @ 250 mls/hr 08/15/18 14:00 08/18/18 06:34 Sodium Chloride IV.SIG Infused Q8H NEGRITA Infusion Ondansetron HCl 4 mg 08/15/18 01:13 08/15/18 09:20 Zofran Inj IV.PUSH 4 mg Q6H PRN Administration NAUSEA OR VOMITING Senna/Docusate Sodium 1 tab 08/15/18 09:00 08/18/18 09:22 Gege-Colace PO 1 tab BID NEGRITA Administration Sodium Chloride 2 ml 08/16/18 09:00 08/17/18 21:03 Ns Flush IV.FLUSH 2 ml BID NEGRITA Administration Objective Remarks: GENERAL: Young fatigued appearing female resting in bed in no acute distress SKIN: Warm and dry. Pale. HEAD: Normocephalic. Alopecia. EYES: No scleral icterus. No injection or drainage. NECK: Supple, trachea midline. CARDIOVASCULAR: Regular rate and rhythm without murmurs. RESPIRATORY: Breath sounds equal bilaterally. No accessory muscle use. GASTROINTESTINAL: Abdomen soft, non-tender, nondistended. EXTREMITIES: No cyanosis, or edema. Right leg in brace but no erythema or increased warmth. It is flavor tank tender around the knee area. MUSCULOSKELETAL: Adequate muscle tone. NEUROLOGICAL: No obvious focal deficit. Awake, alert, and oriented x3. Assessment/Plan (1) Sepsis Code(s): A41.9 - Sepsis, unspecified organism Status: Acute (2) Neutropenia Code(s): D70.9 - Neutropenia, unspecified Status: Acute (3) Osteosarcoma Code(s): C41.9 - Malignant neoplasm of bone and articular cartilage, unspecified Status: Acute - Plan 1. Microbiology continues to show no growth. She has been afebrile. She is still on cefepime and vancomycin. Her CBC shows a very minimal increase today and neutrophils. 2. Transfuse 1 unit platelets today for platelet count of 13,000. She is not having any bleeding. 3. Once she is recovered from the neutropenic fever she will be discharged and follow-up with Dr. Terry for further treatment. 4. Continue supportive care. - Attending Statement The exam, history, and the medical decision-making described in the above note were completed with the assistance of the mid-level provider. I reviewed and agree with the findings presented. I attest that I had a [id number] encounter with the patient on the same day, and personally performed and documented my assessment and findings in the medical record. 23 yoF with osteosarcoma admitted with neutropenic fever. Cytopenias due to chemotherapy. platelet transfusion today.
[2018-08-18 09:55] LABS: Dimorphic RBC Present; Platelet Morphology Normal (Normal)
[2018-08-18] MEDS: Sodium Chloride 0.9% 2 ML Flush BID IV.FLUSH SCH ×2 (10:37→21:04)
[2018-08-18] MEDS: Aluminum/Magnesium/Simethacone Susp 30 ML UDC PO SCH ×3 (10:37→21:06)
[2018-08-18] MEDS: Dextrose 5%/NaCl 0.9% Inj 1,000 ML IV.CONT SCH ×2 (12:07→21:21)
[2018-08-19] MEDS: Vancomycin Inj 1,000 MG in Sodium Chlor 0.9% Inj 250 ML IV.SIG SCH ×3 (05:04→13:52)
[2018-08-19 05:34] LABS: Baso % (Auto) 0.1 % (0.0-2.0); Eos % (Auto) 0.6 % (0.0-4.0); Hematocrit 23.7 % (35.0-46.0); Hemoglobin 8.5 gm/dL (11.6-15.3); Lymph # (Auto) 1.1 th/mm3 (1.0-4.8); Lymph % (Auto) 75.8 % (9.0-44.0); Mean Corpuscular HGB Conc 35.8 % (32.0-36.0); Mean Corpuscular Hemoglobin 32.2 pg (27.0-34.0); Mean Corpuscular Volume 90.1 fL (80.0-100.0); Mono # (Auto) 0.2 th/mm3 (0.0-0.9); Mono % (Auto) 13.9 % (0.0-8.0); Neut % (Auto) 9.6 % (16.0-70.0); Platelet Count 36 th/mm3 (150-450); Red Blood Count 2.63 mil/mm3 (4.00-5.30); Red Cell Distribution Width 15.5 % (11.6-17.2); White Blood Count 1.4 th/mm3 (4.0-11.0)
[2018-08-19 05:47] LABS: Neut # (Auto) 0.1 th/mm3 (1.8-7.7)
--- NOTE | 2018-08-19 07:52 | P.PNONC ---
Subjective Interval history: Patient still complaining of being tired. She has been afebrile for several days. She denies any chest pain or palpitation. She has no shortness of breath or cough. She denies any bleeding or bruising. She had platelet transfusion yesterday. She has no nausea or vomiting. She has no change in bowel habit. She denies any significant lower extremity tenderness. Objective Vital Signs/Intake & Output: Vital Signs 08/18/18 08:00 08/18/18 10:26 08/18/18 11:49 Temperature 98.7 F 98.0 F Pulse Rate 48 L 50 L 50 L Respiratory Rate 16 16 Blood Pressure 115/72 107/64 Pulse Oximetry 100 100 08/18/18 12:00 08/18/18 16:00 08/18/18 20:00 Temperature 98.1 F 98.7 F Pulse Rate 68 89 91 H Respiratory Rate 20 16 Blood Pressure 130/72 106/64 Pulse Oximetry 99 100 08/19/18 00:00 08/19/18 04:00 Temperature 98.3 F 98.6 F Pulse Rate 84 89 Respiratory Rate 14 15 Blood Pressure 103/56 L 102/58 L Pulse Oximetry 100 100 Intake & Output 08/18/18 08/19/18 08/19/18 18:59 06:59 18:59 Intake Total 728 / 728 1840 / 1840 Output Total 600 / 600 Balance 728 / 728 1240 / 1240 Weight 65 kg Intake: IV 450 / 450 1600 / 1600 D5W/Normal Saline Inj 1,000 ML 1000 / 1000 @ 100 mls/hr IV.CONT .Q10H NEGRITA Rx#:[id number] Maxipime Inj 2,000 MG In NS Inj 200 / 200 100 / 100 100 ML @ 200 mls/hr IV.SIG Q8H NEGRITA Rx#:[id number] Vancomycin Inj 1,000 MG In NS 250 / 250 500 / 500 Inj 250 ML @ 250 mls/hr IV.SIG Q8H NEGRITA Rx#:[id number] Oral 240 / 240 Intake (Blood Product) Amt 278 / 278 Plt Pheresis A Leukoreduced 278 / 278 Unit [id number] Output: Urine 600 / 600 Other: # Voids 4 1 Date of Last Bowel Movement 08/18/18 # Bowel Movements 1 Result Diagrams: 08/19/18 05:05 08/18/18 05:54 Laboratory Results: Laboratory Results - last 24 hr 08/18/18 08/18/18 08/19/18 05:54 08:33 05:05 WBC 1.4 L D RBC 2.63 L Hgb 8.5 L Hct 23.7 L MCV 90.1 MCH 32.2 MCHC 35.8 RDW 15.5 Plt Count 36 L D MPV 8.0 Prelim Diff (Auto) Slide review pending Neut % (Auto) 9.6 L Lymph % (Auto) 75.8 H [place] % (Auto) 13.9 H Eos % (Auto) 0.6 Baso % (Auto) 0.1 Neut # (Auto) 0.1 L* Lymph # (Auto) 1.1 [place] # (Auto) 0.2 Eos # (Auto) 0.0 Baso # (Auto) 0.0 WBC Differential Manual diff final Seg Neuts % (Manual) 3 L Lymphocytes % (Manual) 90 H Monocytes % (Manual) 7 Abs Neuts (Manual) 0.0 L* Differential Comment . Platelet Estimate Low L Platelet Morphology Normal Dimorphic RBCs Present H Bld Prod Order Comment Culture Results: Microbiology 08/14/18 22:45 Aerobic Blood Culture - Preliminary Blood - Peripheral No growth in 4 days Anaerobic Blood Culture - Preliminary No growth in 4 days 08/14/18 22:40 Aerobic Blood Culture - Preliminary Blood - Peripheral No growth in 4 days Anaerobic Blood Culture - Preliminary No growth in 4 days Medications: Active Medications Generic Name Dose Route Start Last Admin Trade Name Freq PRN Reason Stop Dose Admin Al Hydrox/Mg Hydrox/Simethicone 30 ml 08/16/18 19:00 08/18/18 21:06 Mag-Al Plus Susp Liq PO Not Given QID NEGRITA Famotidine 10 mg 08/15/18 09:00 08/18/18 21:03 Pepcid PO 10 mg BID NEGRITA Administration Gabapentin 300 mg 08/15/18 09:00 08/18/18 17:19 Neurontin PO 300 mg TID NEGRITA Administration Vancomycin HCl 1,000 mg/ 250 mls @ 250 mls/hr 08/15/18 14:00 08/19/18 06:05 Sodium Chloride IV.SIG Infused Q8H NEGRITA Infusion Cefepime HCl 2,000 mg/ Sodium 100 mls @ 200 mls/hr 08/18/18 18:00 08/19/18 01 :39 Chloride IV.SIG Infused Q8H NEGRITA Infusion Ondansetron HCl 4 mg 08/15/18 01:13 08/15/18 09:20 Zofran Inj IV.PUSH 4 mg Q6H PRN Administration NAUSEA OR VOMITING Senna/Docusate Sodium 1 tab 08/15/18 09:00 08/18/18 21:03 Gege-Colace PO Not Given BID NEGRITA Sodium Chloride 2 ml 08/16/18 09:00 08/18/18 21:04 Ns Flush IV.FLUSH Not Given BID NEGRITA Objective Remarks: GENERAL: Well-nourished, well-developed patient. SKIN: Warm and dry. Pale. HEAD: Normocephalic. Alopecia. EYES: No scleral icterus. No injection or drainage. NECK: Supple, trachea midline. No JVD or lymphadenopathy. LYMPHATIC: No adenopathy. CARDIOVASCULAR: Regular rate and rhythm without murmurs. RESPIRATORY: Breath sounds equal bilaterally. No accessory muscle use. GASTROINTESTINAL: Abdomen soft, non-tender, nondistended. EXTREMITIES: No cyanosis, or edema. Right lower extremity in the cast. Right knee is too sensitive to touch. MUSCULOSKELETAL: Adequate muscle tone. NEUROLOGICAL: No obvious focal deficit. Awake, alert, and oriented x3. PSYCHIATRIC: Appropriate mood and affect; insight and judgment normal. Assessment/Plan (1) Sepsis Code(s): A41.9 - Sepsis, unspecified organism Status: Acute (2) Neutropenia Code(s): D70.9 - Neutropenia, unspecified Status: Acute (3) Osteosarcoma Code(s): C41.9 - Malignant neoplasm of bone and articular cartilage, unspecified Status: Acute - Plan 1. Microbiology continues to show no growth. She has been afebrile. She is still on cefepime and vancomycin. WBC trended up to 1.4. Manual differential is still pending. Continue antibiotics for now. 2. Pancytopenia due to recent chemotherapy. She received 1 unit of platelets yesterday. Platelet count trended up to 36,000. Her last packed red blood cell transfusion was several days ago. Hemoglobin stable at 8.5. She has no evidence of bleeding. 3. Osteosarcoma now receiving maintenance chemotherapy. Patient will let us know if she wants to be transferred back to [facility]. I have talked to the nurse practitioner at [facility] and they are willing to accept her if patient wants to go over there. She will follow-up with Dr. Terry for further treatment per 4. Continue supportive care.
[2018-08-19 09:21] LABS: Lymphocytes 86 % (9-44); Monocytes 7 % (0-8); Toxic Granulation 3+
[2018-08-19 09:22] LABS: Platelet Morphology Normal (Normal)
[2018-08-19] MEDS: Gabapentin 300 MG Capsule PO SCH ×3 (09:25→18:25)
[2018-08-19] MEDS: Famotidine 20 MG Tablet PO SCH ×2 (09:25→20:19)
[2018-08-19] MEDS: Senna/Docusate Sodium 8.6/50 MG Tablet PO SCH ×2 (09:26→20:21)
[2018-08-19] MEDS: Sodium Chloride 0.9% 2 ML Flush BID IV.FLUSH SCH ×2 (09:31→20:23)
[2018-08-19] MEDS: Aluminum/Magnesium/Simethacone Susp 30 ML UDC PO SCH ×4 (09:31→20:04)
[2018-08-19 12:19] VITALS: RESP 16
--- NOTE | 2018-08-19 15:27 | P.PNIM ---
Subjective Interval history: The patient was interested in being transferred to [facility] because she has chemotherapy next week and has no other means of getting to [facility] other than transfer. She had no other acute complaints. Discussed with nursing and oncology. Physical Exam Vital signs: Vital Signs 08/18/18 16:00 08/18/18 20:00 08/19/18 00:00 Temperature 98.1 F 98.7 F 98.3 F Pulse Rate 89 91 H 84 Respiratory Rate 20 16 14 Blood Pressure 130/72 106/64 103/56 L Pulse Oximetry 99 100 100 08/19/18 04:00 08/19/18 08:00 08/19/18 09:18 Temperature 98.6 F 98.5 F Pulse Rate 89 84 102 H Respiratory Rate 15 16 Blood Pressure 102/58 L 106/63 Pulse Oximetry 100 100 08/19/18 11:15 08/19/18 12:00 Temperature 98.4 F Pulse Rate 90 90 Respiratory Rate 16 Blood Pressure 103/60 Pulse Oximetry 98 Intake & Output 08/18/18 08/19/18 08/19/18 18:59 06:59 18:59 Intake Total 728 / 728 1840 / 1840 100 / 100 Output Total 600 / 600 Balance 728 / 728 1240 / 1240 100 / 100 Weight 65 kg Intake: IV 450 / 450 1600 / 1600 100 / 100 D5W/Normal Saline Inj 1,000 ML 1000 / 1000 @ 100 mls/hr IV.CONT .Q10H NEGRITA Rx#:[id number] Maxipime Inj 2,000 MG In NS Inj 200 / 200 100 / 100 100 / 100 100 ML @ 200 mls/hr IV.SIG Q8H NEGRITA Rx#:[id number] Vancomycin Inj 1,000 MG In NS 250 / 250 500 / 500 Inj 250 ML @ 250 mls/hr IV.SIG Q8H NEGRITA Rx#:[id number] Oral 240 / 240 Intake (Blood Product) Amt 278 / 278 Plt Pheresis A Leukoreduced 278 / 278 Unit [id number] Output: Urine 600 / 600 Other: # Voids 4 1 Date of Last Bowel Movement 08/18/18 08/18/18 # Bowel Movements 1 Narrative: Gen.: no acute distress. EENT: Pupils equal round and reactive to light. Throat without injection. no thrush chest wall- port in place- no erythema Cardiovascular: Regular rate and rhythm. No murmurs, rubs or gallops. Respiratory: Lungs clear to auscultation bilaterally. No wheezes or rhonchi. Abdomen: Soft, nontender, nondistended. No peritoneal signs. Musculoskeletal: No gross deformities. No edema. LE- with brace in place Skin: No obvious rashes or erythema. Neuro: Sensory and motor grossly intact. Cranial nerves II through XII grossly intact. Results - Labs CBC & Chem 7: 08/19/18 05:05 08/18/18 05:54 Laboratory Results - last 24 hr 08/19/18 05:05 WBC 1.4 L D RBC 2.63 L Hgb 8.5 L Hct 23.7 L MCV 90.1 MCH 32.2 MCHC 35.8 RDW 15.5 Plt Count 36 L D MPV 8.0 Prelim Diff (Auto) Slide review pending Neut % (Auto) 9.6 L Lymph % (Auto) 75.8 H [place] % (Auto) 13.9 H Eos % (Auto) 0.6 Baso % (Auto) 0.1 Neut # (Auto) 0.1 L* Lymph # (Auto) 1.1 [place] # (Auto) 0.2 Eos # (Auto) 0.0 Baso # (Auto) 0.0 WBC Differential Manual diff final Seg Neuts % (Manual) 3 L Band Neuts % (Manual) 4 Lymphocytes % (Manual) 86 H Monocytes % (Manual) 7 Abs Neuts (Manual) 0.1 L* Differential Comment . Toxic Granulation 3+ H Platelet Estimate Low L Platelet Morphology Normal Microbiology 08/14/18 22:45 Blood - Peripheral Aerobic Blood Culture - Final No growth in 5 days 08/14/18 22:45 Blood - Peripheral Anaerobic Blood Culture - Final No growth in 5 days 08/14/18 22:40 Blood - Peripheral Aerobic Blood Culture - Final No growth in 5 days 08/14/18 22:40 Blood - Peripheral Anaerobic Blood Culture - Final No growth in 5 days Assessment and Plan - Plan Pancytopenia due to recent chemotherapy/Neutropenic fever Chest x-ray negative for acute process. UA negative. Blood cultures no growth to date. ID consult appreciated. -Vancomycin and cefepime per ID. -S/P for 2 units RBC + 2 unit platelets. -08/16 received Neulasta. -Hematology following. -follow cultures-NGTD final. -neutropenic precautions. -D5NS. 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 Oncology consult appreciated. -pain control as needed. -d/c steroids. -possible transfer to [facility] to resume chemo as scheduled. Case management assistance appreciated. PPx: Chemical prophylaxis contraindicated secondary to anemia Discharge Planning: Await ID and oncology clearance. May transfer to [facility] if accepted and bed available.
[2018-08-19 16:36] VITALS: O2SAT 100
--- NOTE | 2018-08-19 17:00 | P.DS ---
Date of admission: 08/15/18 00:59 Primary care physician: Sharmaine Terry Anticipated date of discharge: 08/19/18 Brief History from admission: 23-year-old female with a past medical history significant for osteosarcoma status post surgical resection currently on chemotherapy presents to the emergency department for evaluation of fever, lightheadedness, nausea, sore throat and abdominal pain. The patient reports that she was in her usual state of health until 5 PM yesterday at which time she developed a fever to 102.3. She states she has had a sore throat with a nonproductive cough since that time. She also endorses abdominal pain and nausea without emesis. She states she feels generally weak and fatigued. Her oncologist is Dr. Terry from [facility]. Last chemotherapy was 08/05/18 with next scheduled appointment 08/27. Patient denies any chest pain or shortness of breath. DS: Diagnosis - Discharge Diagnosis (1) Osteosarcoma Status: Acute (2) Neutropenic fever Status: Acute DS: Summary Hospital Course: Pancytopenia/Neutropenic fever On chemotherapy. Chest x-ray negative for acute process. UA negative. Blood cultures with no growth. ID was consulted. Vancomycin and cefepime were continued per ID. Oncology was consulted. S/p 2 units RBC + 2 unit platelets. received Neulasta. She was placed on neutropenic precautions and received IVFs. She will continue antibiotics at this time. History of right knee osteosarcoma She received pain control as needed. We continued steroids. She will be transferred to [facility] to continue chemotherapy as scheduled. Case management was consulted. - Time Spent with Patient Total time spent providing and/or coordinating discharge services: Greater than 30 minutes - Quality: VTE Deep Vein Thrombosis/Pulmonary Embolism Present on Admission: No Exam Vital signs: Vital Signs 08/18/18 20:00 08/19/18 00:00 08/19/18 04:00 Temperature 98.7 F 98.3 F 98.6 F Pulse Rate 91 H 84 89 Respiratory Rate 16 14 15 Blood Pressure 106/64 103/56 L 102/58 L Pulse Oximetry 100 100 100 08/19/18 08:00 08/19/18 09:18 08/19/18 11:15 Temperature 98.5 F 98.4 F Pulse Rate 84 102 H 90 Respiratory Rate 16 16 Blood Pressure 106/63 103/60 Pulse Oximetry 100 98 08/19/18 12:00 08/19/18 16:00 Temperature 98.4 F Pulse Rate 90 98 H Respiratory Rate 16 Blood Pressure 105/54 L Pulse Oximetry 100 Intake & Output 08/18/18 08/19/18 08/19/18 18:59 06:59 18:59 Intake Total 728 / 728 1840 / 1840 100 / 100 Output Total 600 / 600 Balance 728 / 728 1240 / 1240 100 / 100 Weight 65 kg Intake: IV 450 / 450 1600 / 1600 100 / 100 D5W/Normal Saline Inj 1,000 ML 1000 / 1000 @ 100 mls/hr IV.CONT .Q10H NEGRITA Rx#:[id number] Maxipime Inj 2,000 MG In NS Inj 200 / 200 100 / 100 100 / 100 100 ML @ 200 mls/hr IV.SIG Q8H NEGRITA Rx#:[id number] Vancomycin Inj 1,000 MG In NS 250 / 250 500 / 500 Inj 250 ML @ 250 mls/hr IV.SIG Q8H NEGRITA Rx#:[id number] Oral 240 / 240 Intake (Blood Product) Amt 278 / 278 Plt Pheresis A Leukoreduced 278 / 278 Unit [id number] Output: Urine 600 / 600 Other: # Voids 4 1 Date of Last Bowel Movement 08/18/18 08/18/18 # Bowel Movements 1 Narrative: Gen.: no acute distress. EENT: Pupils equal round and reactive to light. Throat without injection. no thrush chest wall- port in place- no erythema Cardiovascular: Regular rate and rhythm. No murmurs, rubs or gallops. Respiratory: Lungs clear to auscultation bilaterally. No wheezes or rhonchi. Abdomen: Soft, nontender, nondistended. No peritoneal signs. Musculoskeletal: No gross deformities. No edema. LE- with brace in place Skin: No obvious rashes or erythema. Neuro: Sensory and motor grossly intact. Cranial nerves II through XII grossly intact. Results Procedures completed during hospitalization: None Labs on day of discharge: Labs from last 24 hours 08/19/18 05:05 WBC 1.4 L D RBC 2.63 L Hgb 8.5 L Hct 23.7 L MCV 90.1 MCH 32.2 MCHC 35.8 RDW 15.5 Plt Count 36 L D MPV 8.0 Prelim Diff (Auto) Slide review pending Neut % (Auto) 9.6 L Lymph % (Auto) 75.8 H Saunders % (Auto) 13.9 H Eos % (Auto) 0.6 Baso % (Auto) 0.1 Neut # (Auto) 0.1 L* Lymph # (Auto) 1.1 Saunders # (Auto) 0.2 Eos # (Auto) 0.0 Baso # (Auto) 0.0 WBC Differential Manual diff final Seg Neuts % (Manual) 3 L Band Neuts % (Manual) 4 Lymphocytes % (Manual) 86 H Monocytes % (Manual) 7 Abs Neuts (Manual) 0.1 L* Differential Comment . Toxic Granulation 3+ H Platelet Estimate Low L Platelet Morphology Normal - Impressions ITS Impressions Chest X-Ray 08/14/18 22:08 CONCLUSION: The lungs are clear. Discharge Plan - Discharge Disposition Patient Disposition: 02 Disch To Another Hospital - Discharge Condition Condition: Stable - Discharge Order Discharge Orders: Discharge Order (Routine); Ordered 08/19/18 Ordered By: Don Ndiaye - Discharge Details Anticipated Discharge Date: 08/19/18 - Physicians Team Attending Provider: Don Ndiaye Other Providers: Brown Maria MD ; Rome Boyle MD ; Jaqueline Barrow MD
[2018-08-19 20:19] VITALS: BP 105/67; PULSE 111; TEMP 98.7
== END 2018-08-19 21:00 | disposition short-term general hospital (02) ==
LOC: NEPC 21:48 → NEDA 08-15 00:59 → N07 08-15 03:10 → HCIN 08-17 15:22
PROVIDERS: ADMIT Hospitalist; ATTEND Hospitalist